=== PATIENT | male | born 1955 | race Caucasian/White ===

== ENCOUNTER 2018-08-22 13:28 | Inpatient (IN) | payer MEDICARE, SELFPAY ==
[2018-08-22] VITALS (11 sets, daily range): BP systolic 112–143; BP diastolic 67–98; PULSE 78–95; RESP 14–21; TEMP 36.4–36.8; O2SAT 95–100; BMI 26.5; BMI 22.8
--- NOTE | 2018-08-22 13:43 | ED.ABDPAIN ---
HPI - Abdominal Pain General Chief Complaint: Abdominal Pain Stated Complaint: ABDOMINAL PAIN/VOMITING Time Seen by Provider: 08/22/18 13:31 Source: patient Mode of arrival: ambulatory Limitations: no limitations History of Present Illness HPI narrative: Patient is a 62-year-old male here for evaluation of bilateral lower abdominal pain. He states that it started at about midnight last night. He states that it woke him up from sleep. Has had multiple episodes of vomiting since then. He reports that maybe the pain improves a little bit with the vomiting. Has no change when his urinated. Has not had a bowel movement since the onset of the symptoms. Has not tried anything for any of his symptoms. Related Data Home Medications Medication Instructions Recorded Confirmed ibuprofen 1 dose PO PRN PRN 08/22/18 08/22/18 losartan 12.5 mg PO DAILY 08/22/18 08/22/18 multivitamin 1 tab PO DAILY 08/22/18 08/22/18 Allergies Allergy/AdvReac Type Severity Reaction Status Date / Time No Known Drug Allergies Allergy Verified 08/22/18 13:35 Review of Systems Constitutional Denies fever(s) and Denies headache(s) ENT Ears, Nose, Mouth, and Throat: Denies headache(s) Cardiovascular Denies chest pain and Denies dyspnea Respiratory Denies dyspnea Gastrointestinal Gastrointestinal: Reports abdominal pain, Reports nausea and Reports vomiting Genitourinary Denies dysuria Musculoskeletal Denies myalgias and Denies arthralgias Integumentary/Breasts Denies lesions and Denies rash Neurologic Denies headache(s) PFSH Medical History Hypertension (Acute) Social History Smoking Status: Former smoker Social History Smoking Status: Former smoker Exam Initial Vital Signs Initial Vital Signs: Vital Signs Pulse Rate 90 08/22/18 13:35 Respiratory Rate 20 08/22/18 13:35 Blood Pressure 114/84 08/22/18 13:35 Pulse Oximetry 97 08/22/18 13:35 Const General: cooperative, well developed, well groomed and No acute distress Orientation: alert, awake and oriented x3 HENMT Head: normal to inspection and normocephalic Resp Effort & Inspection: normal respiratory effort Auscultation: clear to auscultation bilaterally Cardio Rate: regular rate Rhythm: regular rhythm Pulses: radial pulses present GI Inspection: non-distended Palpation: soft, No firm and tender (Bilateral lower abdominal tenderness with some guarding) Skin Lesions: no lesions Rashes: no rashes Neuro General: alert, awake and oriented x3 Cognition: normal cognition Speech: speech normal Gait: normal gait Extrem General: normal to inspection and capillary refill normal Psych Appearance: grossly normal and well kempt Course Orders Ordered: ED Orders 08/22/18 13:42 CT abdomen pelvis w con Stat 08/22/18 13:50 Complete Blood Count AUTO DIFF Stat Comprehensive Metabolic Panel Stat Lipase Stat 08/22/18 15:03 US abdomen complete Stat 08/22/18 19:05 Urine Culture Stat Urine Microscopic Stat Sodium Chloride (Normal Saline 0.9%) 1,000 mls @ 150 mls/hr IV CONT ALLEN Discontinued Medications Hydromorphone HCl (Dilaudid) 0.5 mg IV NOW ONE Stop: 08/22/18 14:58 Last Admin: 08/22/18 15:04 Dose: 0.5 mg Hydromorphone HCl (Dilaudid) 0.5 mg IV NOW ONE Stop: 08/22/18 15:54 Last Admin: 08/22/18 15:58 Dose: 0.5 mg Hydromorphone HCl (Dilaudid) 0.5 mg IV NOW ONE Stop: 08/22/18 16:33 Last Admin: 08/22/18 16:34 Dose: 0.5 mg Hydromorphone HCl (Dilaudid) 0.5 mg IV NOW ONE Stop: 08/22/18 17:20 Last Admin: 08/22/18 17:42 Dose: 0.5 mg Hydromorphone HCl (Dilaudid) 0.5 mg IV NOW ONE Stop: 08/22/18 19:41 Sodium Chloride (Normal Saline 0.9%) 1,000 mls @ 1,000 mls/hr IV BOLUS ONE Stop: 08/22/18 14:41 Last Infusion: 08/22/18 15:02 Dose: 0 mls/hr Admin: 08/22/18 14:01 Dose: 1,000 mls/hr Potassium Chloride 40 meq/ (Sodium Chloride) 520 mls @ 130 mls/hr IV NOW ONE Stop: 08/22/18 18:21 Last Admin: 08/22/18 15:03 Dose: 130 mls/hr Ondansetron HCl (Zofran) 4 mg IV NOW ONE Stop: 08/22/18 13:43 Last Admin: 08/22/18 14:01 Dose: 4 mg Vital Signs - 8 hr 08/22/18 13:35 08/22/18 13:40 08/22/18 14:05 Temperature 97.6 F Pulse Rate 90 78 Respiratory Rate 20 21 Blood Pressure 114/84 Blood Pressure [Right Arm] 112/86 Pulse Oximetry 97 100 08/22/18 15:00 08/22/18 16:03 08/22/18 16:40 Temperature Pulse Rate 80 95 H Respiratory Rate 15 18 Blood Pressure Blood Pressure [Right Arm] 141/81 H 118/87 122/85 Pulse Oximetry 99 100 08/22/18 18:00 08/22/18 19:00 Temperature Pulse Rate 91 H 94 H Respiratory Rate 20 17 Blood Pressure Blood Pressure [Right Arm] 118/67 120/88 Pulse Oximetry 95 100 MDM - Abdominal Pain Lab Data Attestation: I reviewed the patient's lab results. Result diagrams: 08/22/18 13:50 08/22/18 13:50 Lab Results 08/22/18 08/22/18 08/22/18 Range/Units 13:50 13:50 19:05 WBC 9.1 (4.5-11.0) X10^3/uL RBC 4.35 L (4.5-5.9) X10^6/uL Hgb 14.6 (13.5-17.5) g/dL Hct 42.6 (41-53) % MCV 97.8 (80-100) fL MCH 33.6 (26-34) PG MCHC 34.4 (30-36) % RDW 16.0 H (11.6-14.8) % Plt Count 480 H (150-400) X10^3/uL Neut % (Auto) 83.7 H (50-75) % Lymph % (Auto) 2.0 L (25-40) % [place] % (Auto) 14.1 H (3-14) % Eos % (Auto) 0.1 L (2-4) % Baso % (Auto) 0.1 (0-2) % Neut # (Auto) 7600 H (8539-5890) /uL Lymph # (Auto) 200 L (7902-0203) /uL [place] # (Auto) 1300 H (0-900) /uL Eos # (Auto) 0 (0-450) /uL Baso # (Auto) 0 (0-100) /uL Sodium 128 L (137-145) mmol/L Potassium 2.2 L* (3.4-5.1) mmol/L Chloride 80 L (98-107) mmol/L Carbon Dioxide 22 (22-32) mmol/L BUN 27 H (9-20) mg/dL Creatinine 1.10 (0.66-1.25) mg/dL Estimated GFR > 60.0 (>60) mL/min BUN/Creatinine Ratio 24.5 H (6-22) Glucose 144 H (80-110) mg/dL Calcium 9.0 (8.4-10.2) mg/dL Total Bilirubin 1.6 H (0.2-1.3) mg/dL AST 486 H (17-59) IU/L ALT 399 H (21-72) IU/L Alkaline Phosphatase 96 (38-126) U/L Total Protein 8.0 (6.3-8.2) g/dL Albumin 4.6 (3.5-5.0) g/dL Globulin 3.4 (1.7-4.1) g/dL Albumin/Globulin Ratio 1.4 (1.0-2.8) Lipase 96811 H (23-300) U/L Urine RBC 1-5/hpf (0-5/HPF) Urine WBC 5-10/hpf H (0-5/HPF) Urine Bacteria None seen (None) Ur Culture Indicated? Specimen cultured Point of care testing: Urine Dip Bedside Urine Glucose 100 mg/dl Bedside Urine Bilirubin + 1 Bedside Urine Ketone +/- 5 Bedside Urine Occult Blood + Bedside Urine pH 6.5 Bedside Urine Protein + 30 Bedside Urine Urobilinogen 1+ 2mg Bedside Urine Nitrite - Negative Bedside Urine Leukocytes +/- [address] scan - abdomen: Radiologist's impression: PROCEDURE: CT ABDOMEN PELVIS W CON INDICATIONS: bilateral lower abd pain TECHNIQUE: After the administration of oral and intravenous contrast, 5 mm thick sections acquired from the diaphragms to the symphysis. 5 mm thick coronal and sagittal reformats were performed. For radiation dose reduction, the following was used: automated exposure control, adjustment of mA and/or kV according to patient size. COMPARISON: None. FINDINGS: Image quality: Excellent. ABDOMEN: Lung bases: Lung bases are clear. Heart size is normal. Solid organs: Liver is normal in size and enhancement. Diffuse fatty infiltration of the liver. Gallbladder is within normal limits. Biliary system is non-dilated. Pancreas enhances normally. Inflammatory changes and free fluid noted adjacent to the pancreas compatible with acute pancreatitis. No pancreatic pseudocysts. Spleen is normal in size and enhancement. No adrenal nodules. Kidneys are normal in size and enhancement, without hydronephrosis. Left renal cyst is noted. Peritoneum and bowel: Small hiatal hernia. Mildly dilated loops of small bowel noted in left upper quadrant of the abdomen. Loops of small bowel are dilated up to 3.1 cm. There is circumferential wall thickening associated with the dilated loops of small bowel. Transition zone is in the proximal ileum. Stomach and colon loops are normal in caliber and wall thickness. Scattered diverticuli are noted in the colon without evidence of diverticulitis. No free air. Moderate amount of free fluid is scattered throughout the abdomen and pelvis. Nodes and vessels: No retroperitoneal or mesenteric adenopathy. Aorta and inferior vena cava are normal in caliber. Scattered atherosclerotic calcifications involving the abdominal and pelvic vasculature. Miscellaneous: No ventral hernias. PELVIS: Genitourinary: Bladder wall thickness is normal. Miscellaneous: No inguinal hernias or adenopathy. Bones: No suspicious bony lesions. No vertebral body compression fractures. Spine degenerative disc disease and facet arthropathy. IMPRESSION: 1. Solitary changes in fluid noted adjacent the pancreas compatible with pancreatitis. 2. Mild proximal small bowel dilatation and circumferential wall thickening concerning for partial obstruction or ileus related to nonspecific enteritis. 3. Severe hepatic steatosis. 4. Moderate amount of free fluid scattered throughout the abdomen and pelvis. 5. Colonic diverticulosis without evidence of diverticulitis. Findings discussed with Dr. Dean Christian on 08/22/2018 at 1501 hrs. Dictated by: Edwina Arreola MD, PhD on 08/22/2018 at 14:56 Approved by: Edwina Arreola MD, PhD on 08/22/2018 at 15:03 US - abdomen: Radiologist's impression: [address] [address] Ultrasound Report Signed Patient: ASHU HOGAN [facility]#: [id number] : 5Acct:[id number] Age/Sex: 62 / MDate of Service: 08/22/18 Loc: ED Accession Number: [id number] Procedure: US abdomen complete Ordering Provider: Dean Christian D.O. PROCEDURE: US ABDOMEN COMPLETE INDICATIONS: Eval for GB pathology TECHNIQUE: Real-time scanning was performed of the abdominal and retroperitoneal organs, with image documentation. COMPARISON: [facility], CT, CT ABDOMEN PELVIS W CON, 08/22/2018, 14:37. FINDINGS: Liver: Liver is normal in size and homogeneous in echotexture. Gallbladder: Gallbladder demonstrates sludge. Wall is within normal thickness. 9 x 4 x 5 mm nonmobile focus. Biliary ducts: Intrahepatic bile ducts are non-dilated. Extrahepatic bile duct caliber measures 4 mm. Normal is 6-7 mm or less in diameter, or 10 mm or less post-cholecystectomy. Pancreas: Obscured. Spleen: Spleen is normal in size and homogeneous in echotexture. Kidneys: Kidneys are normal in size and echotexture. Right kidney measures 11.1 cm long; left kidney measures 10.7 cm long. No hydronephrosis or nephrolithiasis. 3.7 cm focus of heterogencity within the lateral left kidney. Aorta: Visualized aorta is normal in caliber at less than 3 cm. Iliacs: Proximal common iliac arteries are normal in caliber at less than 2.5 cm. IVC: Intrahepatic inferior vena cava is patent. Miscellaneous: Trace free fluid adjacent to pancreas and left upper quadrant. IMPRESSION: 1. Adherent stone vs polyp in the gallbladder. 2. Complex left renal focus. Interval followup is recommended. 3. Left upper quadrant fluid of uncertain etiology. Pancreas is not well visualized and given the appearance on CT of 08/22/18, fluid is suspected to be related to pancreatitis. Dictated by: Elsa Murphy M.D. on 08/22/2018 at 16:09 MDM Narrative Medical decision making narrative: Patient with physical exam and CT and lab findings consistent with pancreatitis. Given his elevated LFTs there is a small concern for gallstone pancreatitis. I discussed the case with Dr. Harris with [facility] who states he would take the patient if GI would be willing to see the patient. I did discuss the case then with Dr. Vieyra with GI who states that this patient can be managed as medical pancreatitis. They states that the patient does need an MRCP however not an ERCP initially. She did not accept the patient. I then discussed the case then with Dr. Pena the hospitalist here at this hospital who requested that we attempt to transfer the patient. I then discussed the case with the GI provider at [facility] who again stated that there is nothing for GI to do. They stated the patient does needed MRCP but not any ERCP emergently. They stated that the patient could be managed by any hospitalist as a pancreatitis. I then discussed the case with Dr. Pena who requested that I talk with surgery here at this hospital. I discussed the case with Dr. Olivo which General surgery who stated that the patient potentially needs her gallbladder out at some point this is not an emergent condition as the ever is no signs of cholecystitis. I then discussed the case with KINGS Wang the night hospitalist who will admit the patient. I discussed the admission with the patient who expressed understanding and agreement. Discharge Plan Departure Patient Disposition: [facility] Clinical Impression: Hypokalemia, Pancreatitis, Hyponatremia Prescriptions: No Action multivitamin Tablet 1 tab PO DAILY RF: 0 losartan 25 mg Tablet 12.5 mg PO DAILY RF: 0 ibuprofen 200 mg Tablet 1 dose PO PRN PRN (Reason: pain) RF: 0
[2018-08-22 13:58] LABS: Add Manual Diff / Slide Review NO; Basophils Absolute Auto 0 /uL (0-100); Basophils Percent Auto 0.1 % (0-2); Eosinophils Absolute Auto 0 /uL (0-450); Eosinophils Percent Auto 0.1 % (2-4); Hematocrit 42.6 % (41-53); Hemoglobin 14.6 g/dL (13.5-17.5); Lymphocytes Absolute Auto 200 /uL (1100-4500); Mean Corpuscular HGB Conc 34.4 % (30-36); Mean Corpuscular Hemoglobin 33.6 PG (26-34); Mean Corpuscular Volume 97.8 fL (80-100); Monocytes Absolute Auto 1300 /uL (0-900); Monocytes Percent Auto 14.1 % (3-14); Neutrophils Absolute Auto 7600 /uL (1500-7000); Neutrophils Percent Auto 83.7 % (50-75); Platelet Count 480 X10^3/uL (150-400); Red Blood Cell Count 4.35 X10^6/uL (4.5-5.9); White Blood Cell Count 9.1 X10^3/uL (4.5-11.0)
[2018-08-22] MEDS: ONDANSETRON 4 MG/2 ML INJ IV (14:01)
[2018-08-22] MEDS: SODIUM CHLORIDE 0.9% 1,000 ML 1000 ML IV (14:01)
[2018-08-22 14:13] LABS: Alanine Aminotransferase 399 IU/L (21-72); Albumin 4.6 g/dL (3.5-5.0); Albumin Globulin Ratio 1.4 (1.0-2.8); Alkaline Phosphatase 96 U/L (38-126); Aspartate Aminotransferase 486 IU/L (17-59); BUN Creatinine Ratio 24.5 (6-22); Bilirubin Total 1.6 mg/dL (0.2-1.3); Blood Urea Nitrogen 27 mg/dL (9-20); Carbon Dioxide 22 mmol/L (22-32); Chloride 80 mmol/L (98-107); Estimated Glomerular Filt Rate > 60.0 mL/min (>60); Globulin 3.4 g/dL (1.7-4.1); Glucose 144 mg/dL (80-110); HEMOLYSIS < 15 (0-50); Sodium 128 mmol/L (137-145)
[2018-08-22 14:22] LABS: Potassium 2.2 mmol/L (3.4-5.1)
[2018-08-22 14:50] LABS: Lipase 29667 U/L (23-300)
[2018-08-22] MEDS: POTASSIUM CHLORIDE 40 MEQ in SODIUM CHLORIDE 0.9% 500 ML 130 ML IV (15:03)
--- NOTE | 2018-08-22 15:03 | DI.US.S_ITS ---
PROCEDURE: US ABDOMEN COMPLETE INDICATIONS: Eval for GB pathology TECHNIQUE: Real-time scanning was performed of the abdominal and retroperitoneal organs, with image documentation. COMPARISON: [facility], CT, CT ABDOMEN PELVIS W CON, 08/22/2018, 14:37. FINDINGS: Liver: Liver is normal in size and homogeneous in echotexture. Gallbladder: Gallbladder demonstrates sludge. Wall is within normal thickness. 9 x 4 x 5 mm nonmobile focus. Biliary ducts: Intrahepatic bile ducts are non-dilated. Extrahepatic bile duct caliber measures 4 mm. Normal is 6-7 mm or less in diameter, or 10 mm or less post-cholecystectomy. Pancreas: Obscured. Spleen: Spleen is normal in size and homogeneous in echotexture. Kidneys: Kidneys are normal in size and echotexture. Right kidney measures 11.1 cm long; left kidney measures 10.7 cm long. No hydronephrosis or nephrolithiasis. 3.7 cm focus of heterogencity within the lateral left kidney. Aorta: Visualized aorta is normal in caliber at less than 3 cm. Iliacs: Proximal common iliac arteries are normal in caliber at less than 2.5 cm. IVC: Intrahepatic inferior vena cava is patent. Miscellaneous: Trace free fluid adjacent to pancreas and left upper quadrant. IMPRESSION: 1. Adherent stone vs polyp in the gallbladder. 2. Complex left renal focus. Interval followup is recommended. 3. Left upper quadrant fluid of uncertain etiology. Pancreas is not well visualized and given the appearance on CT of 08/22/18, fluid is suspected to be related to pancreatitis. Dictated by: Elsa Murphy M.D. on 08/22/2018 at 16:09 Approved by: Elsa Murphy M.D. on 08/22/2018 at 16:24
[2018-08-22] MEDS: HYDROMORPHONE 1 MG INJ 0.5 MG IV ×5 (15:04→19:52)
[2018-08-22 19:27] LABS: Bacteria Urine None Seen
[2018-08-22] MEDS: SODIUM CHLORIDE 0.9% 1,000 ML 150 ML IV ×2 (19:30→21:20)
[2018-08-22 19:37] LABS: Culture Indicated Urine Specimen Cultured; RBC Urine 1-5/HPF (0-5/HPF); WBC Urine 5-10/HPF (0-5/HPF)
[2018-08-22] MEDS: HYDROMORPHONE 0.5 MG INJ IV (20:15)
--- NOTE | 2018-08-22 20:55 | PC.NURSE ---
Pt admitted to acute care from ER, transferred via stretcher. Alert/oriented. Reports pain 6/10, aching/sharp in abdomen. Pt is grimacing/moaning about every 5 seconds due to pain. Unable to focus/answer some health history/admission questions due to pain. IV flushed well. Oriented to room/call light. Informed pt to use call light for assist when getting out of bed, verbally confirmed understanding, bed alarm on.
--- NOTE | 2018-08-22 21:37 | P.HP_ITS ---
History of Present Illness Date Patient Seen: 08/22/18 Time Patient Seen: 21:50 Chief complaint: ABDOMINAL PAIN/VOMITING Narrative: The patient is a 62-year-old male with PMH of HTN, OS, small hiatal hernia, diverticulosis, left renal cyst. The patient is a poor historian. Patient presented to the ED on 08/22/2018 with complaints of epigastric pain. Symptoms initially noted shortly after mid-night and noted to be of sudden onset. There is no radiation to the back, chest, or flanks. Pain is characterized as cramping and constant. Rated 6-7/10. Abdominal discomfort awakened patient from sleep. Associated symptoms include nausea and vomiting (estimates 16 episodes of bilious emesis). No fever or chills. No diaphoresis. Diminished appetite. No attempts at eating or drinking in lieu of severe abdominal discomfort. No specific exacerbating or remitting factors noted. Denies history of cholelithiasis /cholecystitis, hypertriglyceridemia, external abdominal trauma, or autoimmune condition. Denies prior history of heavy alcohol use; however, does have lifelong EtOH use, currently drinks 2 drinks thrice weekly. Did drink slightly more in his younger years, but denies paranoia excessive use or alcoholism. RF: Advanced age, alcohol use (lifelong). [place] [address]. ALT 399, AST 46, T. Bili 1.6. No signs symptoms of SIRS or sepsis. CT A/P w/ contrast... - Inflammatory changes and free fluid adjacent to the pancreas compatible w/ acute pancreatitis. No pancreatic pseudocyst. - Mildly dilated loops of small bowel noted in LUQ of the abdomen. Loops of small bowel are dilated up to 3.1 cm. There is circumferential wall thickening associated with the dilated loops of small bowel. Transition zone is in the proximal ileum. Concerning for partial obstruction or ileus related to non-specific enteritis. - diverticuli in the colon without evidence of diverticulitis - no free air. Moderate amount of free fluid is scattered throughout the abdomen and pelvis. - severe hepatic steatosis Patient History Medical History Foot fracture, right (Acute) Hypertension (Acute) Surgical History History of bilateral knee replacement (Acute) Social History household members: spouse and family Smoking Status: Former smoker alcohol intake: current Family & Social History Social History: household members Spouse,family. Lives in seen the a ago. Lizet maciel's mother lives in local area, no visiting her since May / as she had surgery. Prior Living Arrangements House Safety & Behavioral: Feels Safe in Current Yes Environment Been Physically Hurt or No Threatened By a Person Suicidal Ideation Description None Tobacco & Substance use: Smoking Status Former smoker alcohol intake Current alcohol intake frequency Reports drinking 2 drinks, 2 to 3 times a week. Lifelong phenomena. Denies heavy history of alcohol use. Substance Use Type Does not use Meds Home Medications Medication Instructions Recorded Confirmed Type ibuprofen 1 dose PO PRN PRN 08/22/18 08/22/18 History losartan 12.5 mg PO DAILY 08/22/18 08/22/18 History multivitamin 1 tab PO DAILY 08/22/18 08/22/18 History Allergies Allergy/AdvReac Type Severity Reaction Status Date / Time Sulfa (Sulfonamide Allergy Severe Swelling Verified 08/22/18 20:49 Antibiotics) of Lip/Tongue/Throat Review of Systems Review of Systems All systems reviewed & are unremarkable except as noted in HPI and below Exam Vital Signs (past 8 hours): - 08/22/18 13:40 08/22/18 14:05 08/22/18 15:00 Temperature 97.6 F Pulse Rate 78 80 Respiratory Rate 21 15 Blood Pressure [Right Arm] 112/86 141/81 H Pulse Oximetry 100 99 08/22/18 16:03 08/22/18 16:40 08/22/18 18:00 Temperature Pulse Rate 95 H 91 H Respiratory Rate 18 20 Blood Pressure [Right Arm] 118/87 122/85 118/67 Pulse Oximetry 100 95 08/22/18 19:00 08/22/18 19:30 08/22/18 20:00 Temperature Pulse Rate 94 H 86 90 Respiratory Rate 17 14 16 Blood Pressure [Right Arm] 120/88 120/75 128/98 H Pulse Oximetry 100 97 97 Oxygen Delivery Method Room Air Narrative Exam Narrative: Constitutional: In overt distress on initial presentation. Complaints cramping epigastric pain, 7/10. Restless. Patient appears older than his stated age. Lying on right side with knees flexed. Neurologic: Alert and awake. Oriented to person, place, and reason for hospital admission. Memory problems noted, poor short and long-term memory recall. Head: NC, AT Eyes: PERRL, EOMI, no scleral icterus Ears: external ears normal, no otorrhea Nose: external nose normal, no rhinorrhea or epistaxis Throat: DRY MM, oropharynx w/o exudate Neck: no masses, lymphadenopathy, or JVD Chest / Respiratory: equal chest rise, mildly tachypneic - RR 24, no dyspnea or accessory muscle use Diminished breath sounds bilaterally Heart / CV: S1S2, no murmur Abdomen / GI: soft, epigastric tenderness and guarding, no LUQ or RUQ tenderness, ND, hypoactive BS, no organomegaly. Frequent, audible belching. No flank or periumbilical ecchymosis. : no suprapubic tenderness, no CVA Peripheral / Vascular: warm to touch, DP and PT pulses palpable, no edema Musc: full ROM of upper and lower extremities, adequate muscle tone and bulk Skin: no flank or periumbilical ecchymosis, no diaphoresis Objective Labs Result Diagrams: 08/22/18 13:50 08/22/18 23:11 Labs: Laboratory Results - last 24 hr 08/22/18 08/22/18 08/22/18 13:50 13:50 19:05 WBC 9.1 RBC 4.35 L Hgb 14.6 Hct 42.6 MCV 97.8 MCH 33.6 MCHC 34.4 RDW 16.0 H Plt Count 480 H Neut % (Auto) 83.7 H Lymph % (Auto) 2.0 L [place] % (Auto) 14.1 H Eos % (Auto) 0.1 L Baso % (Auto) 0.1 Neut # (Auto) 7600 H Lymph # (Auto) 200 L [place] # (Auto) 1300 H Eos # (Auto) 0 Baso # (Auto) 0 Sodium 128 L Potassium 2.2 L* Chloride 80 L Carbon Dioxide 22 BUN 27 H Creatinine 1.10 Estimated GFR > 60.0 BUN/Creatinine Ratio 24.5 H Glucose 144 H Calcium 9.0 Total Bilirubin 1.6 H AST 486 H ALT 399 H Alkaline Phosphatase 96 Total Protein 8.0 Albumin 4.6 Globulin 3.4 Albumin/Globulin Ratio 1.4 Lipase 98629 H Urine RBC 1-5/hpf Urine WBC 5-10/hpf H Urine Bacteria None seen Ur Culture Indicated? Specimen cultured Assessment & Plan Assessment & Plan narrative: Acute pancreatitis, present on admission Epigastric discomfort, lipase 67372. No SIRS or indications for sepsis. No associated respiratory, cardiovascular, or renal failure. CT A/P: gallbladder WNL; biliary system non-dilated; pancreas enhances normally; inflammatory changes and free fluid adjacent to the pancreas compatible w/ acute pancreatitis; no pancreatic pseudocyst. U/S of Abdomen revealed adherent stone vs polyp in the gallbladder. Complex left renal focus. LUQ fluid of uncertain etiology. Pancreas is not well visualized, taking into account CT findings, is suspected to be r/t pancreatitis. Acute pancreatitis secondary to choledocholithiasis; h/o of moderate alcohol use. Abnormal labs: Lipase 92253, ALT 399, AST 46, T. Bili 1.6. No signs symptoms of SIRS or sepsis. - aggressive fluid resuscitation w/ NS at 150-200 ml/hr - correction of electrolytes and metabolic abnormalities, hypokalemia and hypomagnesemia, will replete accordingly - Strict I/O monitoring - pain control with IV Dilaudid 1 mg q.3 hours - NPO for bowel rest, nutritional support - Anti-emetics - a.m. labs: LFTs, lipid profile, BMP, Mg, lipase (BMP, Mg, lipase - trending, order placed until 08/25) - discontinue toxic medications - No s/s of sepsis or infection, will monitor close, as will need to initiate empiric therapy - Abd U/S findings, adherent stone vs polyp in gallbladder, consult surgery for MRCP (Dr. Olivo) - monitor for complications abdominal compartment syndrome, bowel infarction and or perforation, peripancreatic vascular complications, etc. Ileus vs SBO (transition point proximum ilium), acute, complication of acute pancreatitis Hypoactive bowel sounds. No abdominal distention. No emesis. - may need to consider NG tube, will monitor for now - maintain patient NPO Hypovolemia, acute, present on admission 2/2 GI losses and hypermetabolic state - aggressive IV fluid resuscitation Hypokalemia, acute, present on admission, asymptomatic Treated w/ 40 mEq IV KCl in ED - Tele monitoring - Repeat BMP, Mg at 2300 - Replete e-lyte abnormalities accordingly Acute pain In the setting of acute pancreatitis. Allergic to morphine. Tolerated Dilaudid in ED. Patient does not have a history of opioid use. Does not exhibit drug-seeking behaviors. - Dilaudid 1 mg every 3 hours prn pain, plan to transition to oral formulation and 24-48 hours Essential hypertension, chronic condition, controlled with once daily ARBhawa normotensive - Monitor / Trend BP - Hold ARB... re: at risk for LAURO and sepsis, Full code.
[2018-08-22] MEDS: HYDROMORPHONE 2 MG INJ 1 MG IV (22:04)
[2018-08-22 23:34] LABS: BUN Creatinine Ratio 31.1 (6-22); Blood Urea Nitrogen 28 mg/dL (9-20); Calcium 7.3 mg/dL (8.4-10.2); Carbon Dioxide 27 mmol/L (22-32); Chloride 92 mmol/L (98-107); Estimated Glomerular Filt Rate > 60.0 mL/min (>60); Glucose 119 mg/dL (80-110); HEMOLYSIS < 15 (0-50); Magnesium 1.6 mg/dL (1.6-2.3); Sodium 129 mmol/L (137-145)
[2018-08-22 23:36] LABS: Potassium 2.6 mmol/L (3.4-5.1)
[2018-08-22 23:47] LABS: C-Reactive Protein Quant 6.1 mg/dL (<1.0)
[2018-08-23] VITALS (7 sets, daily range): BP systolic 94–127; BP diastolic 56–93; PULSE 82–94; RESP 16–22; TEMP 36.2–36.8; O2SAT 92–96
--- NOTE | 2018-08-23 | DI.MRI.S_ITS ---
PROCEDURE: MR ABDOMEN WO CON INDICATIONS: pancreatitis, ? cholecodolithiasis TECHNIQUE: Coronal HASTE through the abdomen, axial 2-D FLASH in- and [id number], and breath-hold T2 FSE with fat saturation through the biliary system and pancreas. Oblique coronal and axial thin-slice HASTE, radial thick-slab HASTE centered on the extrahepatic bile ducts. Intravenous secretin: Not requested. COMPARISON: [facility], US, US ABDOMEN COMPLETE, 08/22/2018, 15:13. [facility], CT, CT ABDOMEN PELVIS W CON, 08/22/2018, 14:37. FINDINGS: Image quality: Excellent. Pancreas and biliary system: Intra- and extra-hepatic biliary ducts are non dilated. Common hepatic duct and common bile duct are normal in caliber, demonstrating no filling defects to suggest choledocholithiasis. Pancreas is edematous. There is peripancreatic soft tissue stranding and fluid collection consistent with acute pancreatitis. Pancreatic duct is normal in caliber. No immediate developmental anomalies. Gallbladder wall thickness is normal. No stone or polyp is identified. Other solid organs: Liver and spleen are normal in size. There is a small amount of ascites around the liver and spleen. No adrenal nodules. Both kidneys are normal in size, without hydronephrosis. A 2.8 cm exophytic cyst is noted in the inferior pole of the left kidney. Nodes and vessels: No retroperitoneal or mesenteric adenopathy by size criteria. Aorta and inferior vena cava are normal in size. Bowel and peritoneum: Unenhanced bowel loops are normal in caliber. There is a small amount of free fluid in the lesser sac and paracolic gutters. Lung bases: Bibasilar consolidations or atelectasis. Heart size is normal. There is a 2.4 cm cystic structure in the posterior mediastinum right of the distal esophagus/gastroesophageal junction, most likely an enlarged lymph node. Bones and soft tissues: No ventral hernias. Bone marrow is of normal overall signal. IMPRESSION: 1. Acute pancreatitis. 2. No gallstones identified on MRI. No choledocholithiasis. 3. Normal caliber of intrahepatic and extrahepatic biliary ducts , as well as the pancreatic duct. 4. A small amount of ascites. 5. Bibasilar consolidations or atelectasis. 6. 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 Dictated by: Marilu Meek M.D. on 08/23/2018 at 10:20 Approved by: Marilu Meek M.D. on 08/23/2018 at 10:45
[2018-08-23] MEDS: HYDROMORPHONE 1 MG INJ IV ×6 (01:14→20:58)
[2018-08-23] MEDS: SODIUM CHLORIDE 0.9% 1,000 ML 150 ML IV ×2 (04:09→16:46)
[2018-08-23 05:31] LABS: Cholesterol 162 mg/dL (140-199); HDL Cholesterol 48 mg/dL (40-60); LDL Cholesterol Calculated 101 mg/dL (<100); Triglycerides 63 mg/dL (35-150); VLDL Cholesterol Calculated 13 mg/dL (2-30)
[2018-08-23] MEDS: POTASSIUM CHLORIDE 20 MEQ/15 ML UDC 40 MEQ PO (06:10)
[2018-08-23] MEDS: POTASSIUM CHLORIDE 40 MEQ in SODIUM CHLORIDE 0.9% 500 ML 130 ML IV ×2 (06:11→22:23)
[2018-08-23] MEDS: MAGNESIUM SULFATE 2 GM/50 ML PIGGYBACK IV ×2 (06:15→13:17)
--- NOTE | 2018-08-23 06:58 | PC.NURSE ---
2nd line started & Mag rider infusing & K-rider also infusing in Lt. forearm IVP. Denies any nausea all shift, but C/O abdominal pain & medicated with 1 mg. of Dilaudid x 2 doses this shift. Pt. also had an order for liquid Potassium & he took it with apple juice. Will cont. with POc & monitor.
[2018-08-23 07:24] LABS: Alanine Aminotransferase 245 IU/L (21-72); Albumin 2.9 g/dL (3.5-5.0); Albumin Globulin Ratio 1.1 (1.0-2.8); Alkaline Phosphatase 58 U/L (38-126); Aspartate Aminotransferase 220 IU/L (17-59); Bilirubin Total 1.8 mg/dL (0.2-1.3); Bilirubin Unconjugated 0.7 mg/dL (0.0-1.1); Globulin 2.6 g/dL (1.7-4.1); HEMOLYSIS < 15 (0-50); Total Protein 5.5 g/dL (6.3-8.2)
[2018-08-23 07:25] LABS: BUN Creatinine Ratio 33.8 (6-22); Blood Urea Nitrogen 27 mg/dL (9-20); Calcium 7.2 mg/dL (8.4-10.2); Carbon Dioxide 28 mmol/L (22-32); Chloride 93 mmol/L (98-107); Estimated Glomerular Filt Rate > 60.0 mL/min (>60); Glucose 105 mg/dL (80-110); HEMOLYSIS < 15 (0-50); Magnesium 1.6 mg/dL (1.6-2.3); Sodium 130 mmol/L (137-145)
[2018-08-23 07:43] LABS: Potassium 2.5 mmol/L (3.4-5.1)
[2018-08-23 08:11] LABS: Lipase 10418 U/L (23-300)
[2018-08-23] MEDS: HEPARIN 5,000 UNIT/ML VIAL 5000 UNIT SUBCUT ×2 (09:14→20:58)
--- NOTE | 2018-08-23 09:46 | PC.NURSE ---
Pt c/of severe pain in abdomen, no nausea. Moaning with pain. Given 1 mg of dilaudid then went for MRI. O2 sats = 95% on RA. Pt reports he drinks several shots of vodka/orange and beer on most days. Denies any signs of withdrawal at this time - no tremor.
--- NOTE | 2018-08-23 14:17 | PM.CN ---
History of Present Illness Date Patient Seen: 08/23/18 Time Patient Seen: 14:18 Chief complaint: ABDOMINAL PAIN/VOMITING Reason for consult: Pancreatitis Requesting provider: Trevin Wang Narrative: Mr. poe is a 62-year-old gentleman who presented to the emergency room yesterday evening complaining of abdominal pain. He said the pain was acute and started shortly after midnight. It had been associated with nausea and vomiting. He cannot identify any sick contacts. He reported at that time that he felt vomiting made it a little better. He was seen and evaluated by the emergency room staff and found to have pancreatitis with a lipase just under 30,000. At that time, he had an ultrasound which showed the possibility of sludge or a polyp in the gallbladder. It was notable that his bilirubin was essentially normal as was his alk-phos. The ultrasound of his abdomen showed a normal caliber duct with no evidence of inflammation. It also showed a normal gallbladder wall thickness without any evidence of infection or obstruction. Overnight, Ricardo has received hydration and his lipase has decreased to about 10,000. He still has significant abdominal pain but he says he is a little more comfortable than he was at admission. He is not vomiting as he was at admission. [facility] Medical History Foot fracture, right (Acute) Hypertension (Acute) Surgical History History of bilateral knee replacement (Acute) Social History household members: spouse and family Smoking Status: Former smoker alcohol intake: current Social History household members: spouse and family Smoking Status: Former smoker alcohol intake: current Meds Home Medications Medication Instructions Recorded Confirmed Type ibuprofen 1 dose PO PRN PRN 08/22/18 08/22/18 History losartan 12.5 mg PO DAILY 08/22/18 08/22/18 History multivitamin 1 tab PO DAILY 08/22/18 08/22/18 History Allergies Allergy/AdvReac Type Severity Reaction Status Date / Time Sulfa (Sulfonamide Allergy Severe Swelling Verified 08/22/18 20:49 Antibiotics) of Lip/Tongue/Throat Review of Systems Review of Systems Drain denies any unexplained weight loss. He reports that he does drink both beer and vodka essentially daily. He denies any prior yellowing of the eyes or the skin. He denies any prior episodes of pancreatitis. Exam Vital Signs (past 8 hours): - 08/23/18 10:59 08/23/18 12:20 Temperature 98.2 F 97.6 F Pulse Rate 84 82 Respiratory Rate 20 18 Blood Pressure 94/68 123/64 Pulse Oximetry 92 95 Oxygen Delivery Method Room Air Narrative Exam Narrative: Thin-appearing gentleman in mild distress HEENT: Normocephalic and atraumatic. Pupils equal round reactive to light accommodation with anicteric sclera Lungs: Essentially clear bilaterally Heart: Regular rate and rhythm Abdomen: Soft, quite tender to palpation in the mid epigastrium and bilateral upper quadrants. Some tenderness in bilateral lower quadrants. Definite rebound and voluntary guarding. Hypoactive bowel sounds. Extremities: Warm and well perfused and without edema Objective Labs Result Diagrams: 08/22/18 13:50 08/23/18 05:08 Labs: Laboratory Results - last 24 hr 08/22/18 08/22/18 08/22/18 13:50 19:05 23:11 Sodium 129 L Potassium 2.2 L* 2.6 L* Chloride 92 L Carbon Dioxide 27 BUN 28 H Creatinine 0.90 Estimated GFR > 60.0 BUN/Creatinine Ratio 31.1 H Glucose 119 H Calcium 7.3 L Magnesium 1.6 Total Bilirubin Conjugated Bilirubin Unconjugated Bilirubin AST ALT Alkaline Phosphatase C-Reactive Protein Total Protein Albumin Globulin Albumin/Globulin Ratio Triglycerides Cholesterol LDL Cholesterol, Calc VLDL Cholesterol HDL Cholesterol Lipase 94155 H Urine RBC 1-5/hpf Urine WBC 5-10/hpf H Urine Bacteria None seen Ur Culture Indicated? Specimen cultured 08/22/18 08/23/18 08/23/18 23:11 05:08 05:08 Sodium Potassium Chloride Carbon Dioxide BUN Creatinine Estimated GFR BUN/Creatinine Ratio Glucose Calcium Magnesium Total Bilirubin 1.8 H Conjugated Bilirubin 0.0 Unconjugated Bilirubin 0.7 AST 220 H ALT 245 H Alkaline Phosphatase 58 C-Reactive Protein 6.1 H Total Protein 5.5 L Albumin 2.9 L Globulin 2.6 Albumin/Globulin Ratio 1.1 Triglycerides 63 Cholesterol 162 LDL Cholesterol, Calc 101 H VLDL Cholesterol 13 HDL Cholesterol 48 Lipase 42739 H D Urine RBC Urine WBC Urine Bacteria Ur Culture Indicated? 08/23/18 05:08 Sodium 130 L Potassium 2.5 L* Chloride 93 L Carbon Dioxide 28 BUN 27 H Creatinine 0.80 Estimated GFR > 60.0 BUN/Creatinine Ratio 33.8 H Glucose 105 Calcium 7.2 L Magnesium 1.6 Total Bilirubin Conjugated Bilirubin Unconjugated Bilirubin AST ALT Alkaline Phosphatase C-Reactive Protein Total Protein Albumin Globulin Albumin/Globulin Ratio Triglycerides Cholesterol LDL Cholesterol, Calc VLDL Cholesterol HDL Cholesterol Lipase Urine RBC Urine WBC Urine Bacteria Ur Culture Indicated? [address] [address] Magnetic Resonance Report Signed Patient: ASHU POE MR#: [id number] : 1955 Acct:[id number] Age/Sex: 62 / M Date of Service: 08/23/18 Loc: 229-1 Accession Number: [id number] Procedure: MR abdomen wo con Ordering Provider: Trevin Wang PROCEDURE: MR ABDOMEN WO CON INDICATIONS: pancreatitis, ? cholecodolithiasis TECHNIQUE: Coronal HASTE through the abdomen, axial 2-D FLASH in- and [id number], and breath-hold T2 FSE with fat saturation through the biliary system and pancreas. Oblique coronal and axial thin-slice HASTE, radial thick-slab HASTE centered on the extrahepatic bile ducts. Intravenous secretin: Not requested. COMPARISON: [facility], US, US ABDOMEN COMPLETE, 08/22/2018, 15:13. [facility], CT, CT ABDOMEN PELVIS W CON, 08/22/2018, 14:37. FINDINGS: Image quality: Excellent. Pancreas and biliary system: Intra- and extra-hepatic biliary ducts are non dilated. Common hepatic duct and common bile duct are normal in caliber, demonstrating no filling defects to suggest choledocholithiasis. Pancreas is edematous. There is peripancreatic soft tissue stranding and fluid collection consistent with acute pancreatitis. Pancreatic duct is normal in caliber. No immediate developmental anomalies. Gallbladder wall thickness is normal. No stone or polyp is identified. Other solid organs: Liver and spleen are normal in size. There is a small amount of ascites around the liver and spleen. No adrenal nodules. Both kidneys are normal in size, without hydronephrosis. A 2.8 cm exophytic cyst is noted in the inferior pole of the left kidney. Nodes and vessels: No retroperitoneal or mesenteric adenopathy by size criteria. Aorta and inferior vena cava are normal in size. Bowel and peritoneum: Unenhanced bowel loops are normal in caliber. There is a small amount of free fluid in the lesser sac and paracolic gutters. Lung bases: Bibasilar consolidations or atelectasis. Heart size is normal. There is a 2.4 cm cystic structure in the posterior mediastinum right of the distal esophagus/gastroesophageal junction, most likely an enlarged lymph node. Bones and soft tissues: No ventral hernias. Bone marrow is of normal overall signal. IMPRESSION: 1. Acute pancreatitis. 2. No gallstones identified on MRI. No choledocholithiasis. 3. Normal caliber of intrahepatic and extrahepatic biliary ducts , as well as the pancreatic duct. 4. A small amount of ascites. 5. Bibasilar consolidations or atelectasis. 6. 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 Dictated by: Marilu Meek M.D. on 08/23/2018 at 10:20 Approved by: Marilu Meek M.D. on 08/23/2018 at 10:45 Assessment & Plan Assessment & Plan narrative: No evidence of biliary pancreatitis in this pleasant gentleman. The gallbladder is normal and there is no evidence of either stones or polyps on the recent MRI. This is most likely alcoholic pancreatitis. I agree with current treatment. There is no indication for surgical intervention. We will be available if needed.
--- NOTE | 2018-08-23 14:21 | P.CONS_ITS ---
History of Present Illness Date Patient Seen: 08/23/18 Time Patient Seen: 14:18 Chief complaint: ABDOMINAL PAIN/VOMITING Reason for consult: Pancreatitis Requesting provider: Trevin Wang Narrative: Mr. poe is a 62-year-old gentleman who presented to the emergency room yesterday evening complaining of abdominal pain. He said the pain was acute and started shortly after midnight. It had been associated with nausea and vomiting. He cannot identify any sick contacts. He reported at that time that he felt vomiting made it a little better. He was seen and evaluated by the emergency room staff and found to have pancreatitis with a lipase just under 30,000. At that time, he had an ultrasound which showed the possibility of sludge or a polyp in the gallbladder. It was notable that his bilirubin was essentially normal as was his alk-phos. The ultrasound of his abdomen showed a normal caliber duct with no evidence of inflammation. It also showed a normal gallbladder wall thickness without any evidence of infection or obstruction. Overnight, Ricardo has received hydration and his lipase has decreased to about 10,000. He still has significant abdominal pain but he says he is a little more comfortable than he was at admission. He is not vomiting as he was at admission. [facility] Medical History Foot fracture, right (Acute) Hypertension (Acute) Surgical History History of bilateral knee replacement (Acute) Social History household members: spouse and family Smoking Status: Former smoker alcohol intake: current Social History household members: spouse and family Smoking Status: Former smoker alcohol intake: current Meds Home Medications Medication Instructions Recorded Confirmed Type ibuprofen 1 dose PO PRN PRN 08/22/18 08/22/18 History losartan 12.5 mg PO DAILY 08/22/18 08/22/18 History multivitamin 1 tab PO DAILY 08/22/18 08/22/18 History Allergies Allergy/AdvReac Type Severity Reaction Status Date / Time Sulfa (Sulfonamide Allergy Severe Swelling Verified 08/22/18 20:49 Antibiotics) of Lip/Tongue/Throat Review of Systems Review of Systems Drain denies any unexplained weight loss. He reports that he does drink both beer and vodka essentially daily. He denies any prior yellowing of the eyes or the skin. He denies any prior episodes of pancreatitis. Exam Vital Signs (past 8 hours): - 08/23/18 10:59 08/23/18 12:20 Temperature 98.2 F 97.6 F Pulse Rate 84 82 Respiratory Rate 20 18 Blood Pressure 94/68 123/64 Pulse Oximetry 92 95 Oxygen Delivery Method Room Air Narrative Exam Narrative: Thin-appearing gentleman in mild distress HEENT: Normocephalic and atraumatic. Pupils equal round reactive to light accommodation with anicteric sclera Lungs: Essentially clear bilaterally Heart: Regular rate and rhythm Abdomen: Soft, quite tender to palpation in the mid epigastrium and bilateral upper quadrants. Some tenderness in bilateral lower quadrants. Definite rebo und and voluntary guarding. Hypoactive bowel sounds. Extremities: Warm and well perfused and without edema Objective Labs Result Diagrams: 08/22/18 13:50 08/23/18 05:08 Labs: Laboratory Results - last 24 hr 08/22/18 08/22/18 08/22/18 13:50 19:05 23:11 Sodium 129 L Potassium 2.2 L* 2.6 L* Chloride 92 L Carbon Dioxide 27 BUN 28 H Creatinine 0.90 Estimated GFR > 60.0 BUN/Creatinine Ratio 31.1 H Glucose 119 H Calcium 7.3 L Magnesium 1.6 Total Bilirubin Conjugated Bilirubin Unconjugated Bilirubin AST ALT Alkaline Phosphatase C-Reactive Protein Total Protein Albumin Globulin Albumin/Globulin Ratio Triglycerides Cholesterol LDL Cholesterol, Calc VLDL Cholesterol HDL Cholesterol Lipase 48627 H Urine RBC 1-5/hpf Urine WBC 5-10/hpf H Urine Bacteria None seen Ur Culture Indicated? Specimen cultured 08/22/18 08/23/18 08/23/18 23:11 05:08 05:08 Sodium Potassium Chloride Carbon Dioxide BUN Creatinine Estimated GFR BUN/Creatinine Ratio Glucose Calcium Magnesium Total Bilirubin 1.8 H Conjugated Bilirubin 0.0 Unconjugated Bilirubin 0.7 AST 220 H ALT 245 H Alkaline Phosphatase 58 C-Reactive Protein 6.1 H Total Protein 5.5 L Albumin 2.9 L Globulin 2.6 Albumin/Globulin Ratio 1.1 Triglycerides 63 Cholesterol 162 LDL Cholesterol, Calc 101 H VLDL Cholesterol 13 HDL Cholesterol 48 Lipase 77317 H D Urine RBC Urine WBC Urine Bacteria Ur Culture Indicated? 08/23/18 05:08 Sodium 130 L Potassium 2.5 L* Chloride 93 L Carbon Dioxide 28 BUN 27 H Creatinine 0.80 Estimated GFR > 60.0 BUN/Creatinine Ratio 33.8 H Glucose 105 Calcium 7.2 L Magnesium 1.6 Total Bilirubin Conjugated Bilirubin Unconjugated Bilirubin AST ALT Alkaline Phosphatase C-Reactive Protein Total Protein Albumin Globulin Albumin/Globulin Ratio Triglycerides Cholesterol LDL Cholesterol, Calc VLDL Cholesterol HDL Cholesterol Lipase Urine RBC Urine WBC Urine Bacteria Ur Culture Indicated? [address] [address] Magnetic Resonance Report Signed Patient: ASHU POE MR#: [id number] : 1955 Acct:[id number] Age/Sex: 62 / M Date of Service: 08/23/18 Loc: 229-1 Accession Number: [id number] Procedure: MR abdomen wo con Ordering Provider: Trevin Wang PROCEDURE: MR ABDOMEN WO CON INDICATIONS: pancreatitis, ? cholecodolithiasis TECHNIQUE: Coronal HASTE through the abdomen, axial 2-D FLASH in- and [id number], and breath-hold T2 FSE with fat saturation through the biliary system and pancreas. Oblique coronal and axial thin-slice HASTE, radial thick-slab HASTE centered on the extrahepatic bile ducts. Intravenous secretin: Not requested. COMPARISON: [facility], US, US ABDOMEN COMPLETE, 08/22/2018, 15:13. [facility], CT, CT ABDOMEN PELVIS W CON, 08/22/2018, 14:37. FINDINGS: Image quality: Excellent. Pancreas and biliary system: Intra- and extra-hepatic biliary ducts are non dilated. Common hepatic duct and common bile duct are normal in caliber, demonstrating no filling defects to suggest choledocholithiasis. Pancreas is edematous. There is peripancreatic soft tissue stranding and fluid collection consistent with acute pancreatitis. Pancreatic duct is normal in caliber. No immediate developmental anomalies. Gallbladder wall thickness is normal. No stone or polyp is identified. Other solid organs: Liver and spleen are normal in size. There is a small amount of ascites around the liver and spleen. No adrenal nodules. Both kidneys are normal in size, without hydronephrosis. A 2.8 cm exophytic cyst is noted in the inferior pole of the left kidney. Nodes and vessels: No retroperitoneal or mesenteric adenopathy by size criteria. Aorta and inferior vena cava are normal in size. Bowel and peritoneum: Unenhanced bowel loops are normal in caliber. There is a small amount of free fluid in the lesser sac and paracolic gutters. Lung bases: Bibasilar consolidations or atelectasis. Heart size is normal. There is a 2.4 cm cystic structure in the posterior mediastinum right of the distal esophagus/gastroesophageal junction, most likely an enlarged lymph node. Bones and soft tissues: No ventral hernias. Bone marrow is of normal overall signal. IMPRESSION: 1. Acute pancreatitis. 2. No gallstones identified on MRI. No choledocholithiasis. 3. Normal caliber of intrahepatic and extrahepatic biliary ducts , as well as the pancreatic duct. 4. A small amount of ascites. 5. Bibasilar consolidations or atelectasis. 6. 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 Dictated by: Marilu Meek M.D. on 08/23/2018 at 10:20 Approved by: Marilu Meek M.D. on 08/23/2018 at 10:45 Assessment & Plan Assessment & Plan narrative: No evidence of biliary pancreatitis in this pleasant gentleman. The gallbladder is normal and there is no evidence of either stones or polyps on the recent MRI. This is most likely alcoholic pancreatitis. I agree with current treatment. There is no indication for surgical intervention. We will be available if needed.
[2018-08-23 14:56] LABS: Add Manual Diff / Slide Review NO; Basophils Absolute Auto 0 /uL (0-100); Basophils Percent Auto 0.2 % (0-2); Eosinophils Absolute Auto 0 /uL (0-450); Hematocrit 36.7 % (41-53); Hemoglobin 12.5 g/dL (13.5-17.5); Lymphocytes Absolute Auto 400 /uL (1100-4500); Lymphocytes Percent Auto 5.2 % (25-40); Mean Corpuscular Hemoglobin 33.7 PG (26-34); Mean Corpuscular Volume 98.9 fL (80-100); Monocytes Absolute Auto 500 /uL (0-900); Monocytes Percent Auto 6.1 % (3-14); Neutrophils Absolute Auto 7000 /uL (1500-7000); Neutrophils Percent Auto 88.5 % (50-75); Platelet Count 320 X10^3/uL (150-400); Red Blood Cell Count 3.71 X10^6/uL (4.5-5.9); Red Cell Distribution Width 15.9 % (11.6-14.8); White Blood Cell Count 7.9 X10^3/uL (4.5-11.0)
--- NOTE | 2018-08-23 15:09 | P.PN_ITS ---
Subjective Date Patient Seen: 08/23/18 Interval history: Deepak Quintanilla is a 62-year-old male with a past medical history significant for hypertension, ITZEL, small hiatal hernia, diverticulosis, left renal cyst who presented to the ED on 08/22/2018 with complaints of epigastric pain with associated nausea vomiting. The patient is resting in bed and appears uncomfortable. He reports his epigastric abdominal pain is a +5/10. He also endorses intermittent nausea. He recently had water and Jell-O and for back off and for now will back off to clear liquids minimally today. He denies headache, shortness of breath, chest pain, vomiting, fever, chills, dysuria, diarrhea or constipation. He is voiding and eliminating without difficulty. He is up ambulating minimally due to pain without assistance. Exam Vital Signs (past 8 hours): - 08/23/18 10:59 08/23/18 12:20 Temperature 98.2 F 97.6 F Pulse Rate 84 82 Respiratory Rate 20 18 Blood Pressure 94/68 123/64 Pulse Oximetry 92 95 Oxygen Delivery Method Room Air Narrative Exam Narrative: General: Older gentleman sitting in bed appears mildly uncomfortable, in no acute distress, appears older than stated age, well-developed, well-nourished, appropriately interactive. HEENT: Normocephalic, atraumatic. External ears without defect. Pupils equal, round, and reactive to light. Anicteric sclerae, moist conjunctivae, and no lid lag. Neck: Supple with full range of motion. No lymphadenopathy or thyromegaly. Cardiovascular: Regular rate and rhythm without murmurs, rubs, or gallops appreciated Pulmonary: Clear to auscultation bilaterally without crackles, wheezes, or rhonchi. Normal respiratory effort with no use of accessory muscles. Abdomen: Soft, bowel sounds present, mild tenderness to palpation epigastrium, nondistended. No hepatosplenomegaly or masses appreciated. Extremities: No clubbing, cyanosis, or edema. Large vertical scars on knees bilaterally. Skin: Normal temperature, turgor, and texture; no rash, ulcers, or subcutaneous nodules appreciated. Neurological: Cranial nerves grossly intact. Psychiatric: Normal mood and affect. Alert and oriented to person, place, and time. Objective Labs Result Diagrams: 08/23/18 14:25 02/21/19 05:08 Labs: Laboratory Results - last 24 hr 08/22/18 08/22/18 08/22/18 19:05 23:11 23:11 WBC RBC Hgb Hct MCV MCH MCHC RDW Plt Count Neut % (Auto) Lymph % (Auto) [place] % (Auto) Eos % (Auto) Baso % (Auto) Neut # (Auto) Lymph # (Auto) [place] # (Auto) Eos # (Auto) Baso # (Auto) Sodium 129 L Potassium 2.6 L* Chloride 92 L Carbon Dioxide 27 BUN 28 H Creatinine 0.90 Estimated GFR > 60.0 BUN/Creatinine Ratio 31.1 H Glucose 119 H Calcium 7.3 L Magnesium 1.6 Total Bilirubin Conjugated Bilirubin Unconjugated Bilirubin AST ALT Alkaline Phosphatase C-Reactive Protein 6.1 H Total Protein Albumin Globulin Albumin/Globulin Ratio Triglycerides Cholesterol LDL Cholesterol, Calc VLDL Cholesterol HDL Cholesterol Lipase Urine RBC 1-5/hpf Urine WBC 5-10/hpf H Urine Bacteria None seen Ur Culture Indicated? Specimen cultured 08/23/18 08/23/18 08/23/18 05:08 05:08 05:08 WBC RBC Hgb Hct MCV MCH MCHC RDW Plt Count Neut % (Auto) Lymph % (Auto) [place] % (Auto) Eos % (Auto) Baso % (Auto) Neut # (Auto) Lymph # (Auto) [place] # (Auto) Eos # (Auto) Baso # (Auto) Sodium 130 L Potassium 2.5 L* Chloride 93 L Carbon Dioxide 28 BUN 27 H Creatinine 0.80 Estimated GFR > 60.0 BUN/Creatinine Ratio 33.8 H Glucose 105 Calcium 7.2 L Magnesium 1.6 Total Bilirubin 1.8 H Conjugated Bilirubin 0.0 Unconjugated Bilirubin 0.7 AST 220 H ALT 245 H Alkaline Phosphatase 58 C-Reactive Protein Total Protein 5.5 L Albumin 2.9 L Globulin 2.6 Albumin/Globulin Ratio 1.1 Triglycerides 63 Cholesterol 162 LDL Cholesterol, Calc 101 H VLDL Cholesterol 13 HDL Cholesterol 48 Lipase 70339 H D Urine RBC Urine WBC Urine Bacteria Ur Culture Indicated? 08/23/18 14:25 WBC 7.9 RBC 3.71 L Hgb 12.5 L Hct 36.7 L MCV 98.9 MCH 33.7 MCHC 34.0 RDW 15.9 H Plt Count 320 Neut % (Auto) 88.5 H Lymph % (Auto) 5.2 L [place] % (Auto) 6.1 Eos % (Auto) 0.0 L Baso % (Auto) 0.2 Neut # (Auto) 7000 Lymph # (Auto) 400 L [place] # (Auto) 500 Eos # (Auto) 0 Baso # (Auto) 0 Sodium Potassium Chloride Carbon Dioxide BUN Creatinine Estimated GFR BUN/Creatinine Ratio Glucose Calcium Magnesium Total Bilirubin Conjugated Bilirubin Unconjugated Bilirubin AST ALT Alkaline Phosphatase C-Reactive Protein Total Protein Albumin Globulin Albumin/Globulin Ratio Triglycerides Cholesterol LDL Cholesterol, Calc VLDL Cholesterol HDL Cholesterol Lipase Urine RBC Urine WBC Urine Bacteria Ur Culture Indicated? Assessment & Plan Assessment & Plan narrative: Deepak Quintanilla is a 62-year-old male with a past medical history significant for hypertension, ITZEL, small hiatal hernia, diverticulosis, left renal cyst who presented to the ED on 08/22/2018 with complaints of epigastric pain with associated nausea vomiting. 1. Acute alcoholic pancreatitis, present on admission. Active. -Patient presented with epigastric discomfort with associated [place] [address]. No SIRS or indications for sepsis. No associated respiratory, cardiovascular, or renal failure. -Patient with history of moderate alcohol use several beers and mixed drinks per day. -CT chest abdomen and pelvis demonstrated gallbladder WNL; biliary system non- dilated; pancreas enhances normally; inflammatory changes and free fluid adjacent to the pancreas compatible w/ acute pancreatitis; no pancreatic pseudocyst. -U/S of Abdomen revealed adherent stone vs polyp in the gallbladder. Complex left renal focus. LUQ fluid of uncertain etiology. Pancreas is not well visualized, taking into account CT findings, is suspected to be r/t pancreatitis. -MRCP did not demonstrate any cholelithiasis or choledocholithiasis. -Continue aggressive fluid resuscitation with normal saline at 150 mL/hr. -Strict I/O monitoring. -Pain control with IV Dilaudid 1 mg every 3 hr as needed for severe pain and Zofran as needed for nausea.. -NPO for bowel rest and will advance diet slowly as tolerated. -Discontinue toxic medications. -Monitor for complications abdominal compartment syndrome, bowel infarction and or perforation, peripancreatic vascular complications, etc. -Recommend abstaining from alcohol indefinitely. 2. Possible acute Ileus, complication of acute pancreatitis, present on a dmission. Active. -No abdominal distention. No emesis. Patient reports having normal bowel movements. -May need to consider NG tube, will monitor for now -NPO for bowel rest and will advance diet slowly as tolerated. -MRCP did not demonstrate ileus versus small partial small-bowel obstruction and fluid in the paracolic gutter, therefore, likely just inflammatory changes secondary to acute pancreatitis. 3. Acute hypovolemia, present on admission. Active. -2/2 GI losses and hypermetabolic state. -Continue aggressive IV fluid resuscitation as above. 4. Acute hypokalemia, present on admission. Active. -Significant hypokalemia with initial potassium level 2.2 possibly reflective of beer potomania. Received potassium chloride 40 mEq IV x1. Will continue to replete as needed. -Continue to monitor closely on telemetry. 5. Essential hypertension, chronic condition, controlled with once daily ARB, currently normotensive -Monitor and trend BP. -Hold ARB... re: at risk for LAURO and sepsis. Disposition: Likely to discharge in several days once pancreatitis has resolved.
[2018-08-23 15:15] LABS: Blood Urea Nitrogen 24 mg/dL (9-20); Carbon Dioxide 25 mmol/L (22-32); Chloride 97 mmol/L (98-107); Estimated Glomerular Filt Rate > 60.0 mL/min (>60); Glucose 111 mg/dL (80-110); HEMOLYSIS 31 (0-50); Magnesium 2.7 mg/dL (1.6-2.3); Sodium 131 mmol/L (137-145)
[2018-08-23 15:24] LABS: Calcium 6.9 mg/dL (8.4-10.2)
[2018-08-23] MEDS: ONDANSETRON 4 MG/2 ML INJ IV (21:03)
[2018-08-23] MEDS: SODIUM CHLORIDE 0.9% 1,000 ML 200 ML IV (22:27)
[2018-08-24] VITALS (13 sets, daily range): BP systolic 101–123; BP diastolic 68–89; PULSE 90–98; RESP 18–20; TEMP 35.1–36.8; O2SAT 86–98
[2018-08-24] MEDS: HYDROMORPHONE 1 MG INJ IV ×7 (00:20→23:59)
[2018-08-24 06:17] LABS: Add Manual Diff / Slide Review NO; Basophils Absolute Auto 0 /uL (0-100); Basophils Percent Auto 0.2 % (0-2); Eosinophils Absolute Auto 0 /uL (0-450); Eosinophils Percent Auto 0.1 % (2-4); Hematocrit 34.4 % (41-53); Hemoglobin 11.7 g/dL (13.5-17.5); Lymphocytes Absolute Auto 200 /uL (1100-4500); Mean Corpuscular HGB Conc 33.9 % (30-36); Mean Corpuscular Hemoglobin 33.8 PG (26-34); Mean Corpuscular Volume 99.7 fL (80-100); Monocytes Absolute Auto 200 /uL (0-900); Monocytes Percent Auto 8.1 % (3-14); Neutrophils Absolute Auto 2200 /uL (1500-7000); Neutrophils Percent Auto 83.6 % (50-75); Platelet Count 280 X10^3/uL (150-400); Red Blood Cell Count 3.45 X10^6/uL (4.5-5.9); Red Cell Distribution Width 16.2 % (11.6-14.8); White Blood Cell Count 2.6 X10^3/uL (4.5-11.0)
[2018-08-24 06:21] LABS: Alanine Aminotransferase 151 IU/L (21-72); Albumin 2.7 g/dL (3.5-5.0); Alkaline Phosphatase 49 U/L (38-126); Aspartate Aminotransferase 115 IU/L (17-59); Bilirubin Total 1.7 mg/dL (0.2-1.3); Blood Urea Nitrogen 21 mg/dL (9-20); Calcium 6.8 mg/dL (8.4-10.2); Carbon Dioxide 25 mmol/L (22-32); Chloride 98 mmol/L (98-107); Estimated Glomerular Filt Rate > 60.0 mL/min (>60); Globulin 2.8 g/dL (1.7-4.1); Glucose 121 mg/dL (80-110); HEMOLYSIS < 15 (0-50); Lipase 1544 U/L (23-300); Magnesium 2.3 mg/dL (1.6-2.3); Potassium 2.8 mmol/L (3.4-5.1); Sodium 132 mmol/L (137-145); Total Protein 5.5 g/dL (6.3-8.2)
[2018-08-24 06:48] LABS: Procalcitonin 0.64 ng/mL (<0.5)
--- NOTE | 2018-08-24 07:25 | P.PN_ITS ---
Subjective Date Patient Seen: 08/24/18 Interval history: Deepak Quintanilla is a 62-year-old male with a past medical history significant for hypertension, ITZEL, small hiatal hernia, diverticulosis, left renal cyst who presented to the ED with complaints of epigastric pain with associated nausea and vomiting admitted for acute alcoholic pancreatitis. The patient is resting in bed comfortably. He reports his intermittent mid abdominal pain. He reports that it was right-sided radiating to mid abdomen and the right-sided abdominal pain has resolved. He endorses hunger and the plan to is to try to slowly advanced his diet again with clear liquids today. He reports he had clear liquids yesterday evening with nausea afterward. He denies headache, shortness of breath, chest pain, nausea, vomiting, fever, chills, dysuria, diarrhea or constipation. He is voiding without difficulty. He is up ambulating minimally due to pain without assistance. Exam Vital Signs (past 8 hours): - 08/24/18 00:00 08/24/18 00:23 08/24/18 04:00 Temperature 98.0 F 95.2 F L Pulse Rate 98 H 97 H Respiratory Rate 18 20 Blood Pressure 104/74 101/68 Pulse Oximetry 91 92 95 Oxygen Delivery Method Room Air Oxygen Flow Rate 2 Narrative Exam Narrative: General: Older gentleman sitting in bed appears mildly uncomfortable, in no acute distress, appears older than stated age, well-developed, well-nourished, appropriately interactive. HEENT: Normocephalic, atraumatic. External ears without defect. Pupils equal, round, and reactive to light. Anicteric sclerae, moist conjunctivae, and no lid lag. Neck: Supple with full range of motion. No lymphadenopathy or thyromegaly. Cardiovascular: Regular rate and rhythm without murmurs, rubs, or gallops appreciated Pulmonary: Clear to auscultation bilaterally without crackles, wheezes, or rhonchi. Normal respiratory effort with no use of accessory muscles. Abdomen: Soft, bowel sounds present, mild tenderness to palpation mid abdomen, nondistended. No hepatosplenomegaly or masses appreciated. Extremities: No clubbing, cyanosis, or edema. Large vertical scars on knees bilaterally. Skin: Normal temperature, turgor, and texture; no rash, ulcers, or subcutaneous nodules appreciated. Neurological: Cranial nerves grossly intact. Psychiatric: Normal mood and affect. Alert and oriented to person, place, and time. Objective Labs Result Diagrams: 08/24/18 05:08 08/24/18 05:08 Labs: Laboratory Results - last 24 hr 08/23/18 08/23/18 08/23/18 05:08 05:08 14:25 WBC 7.9 RBC 3.71 L Hgb 12.5 L Hct 36.7 L MCV 98.9 MCH 33.7 MCHC 34.0 RDW 15.9 H Plt Count 320 Neut % (Auto) 88.5 H Lymph % (Auto) 5.2 L [place] % (Auto) 6.1 Eos % (Auto) 0.0 L Baso % (Auto) 0.2 Neut # (Auto) 7000 Lymph # (Auto) 400 L [place] # (Auto) 500 Eos # (Auto) 0 Baso # (Auto) 0 Sodium 130 L Potassium 2.5 L* Chloride 93 L Carbon Dioxide 28 BUN 27 H Creatinine 0.80 Estimated GFR > 60.0 BUN/Creatinine Ratio 33.8 H Glucose 105 Calcium 7.2 L Magnesium 1.6 Total Bilirubin 1.8 H Conjugated Bilirubin 0.0 Unconjugated Bilirubin 0.7 AST 220 H ALT 245 H Alkaline Phosphatase 58 Total Protein 5.5 L Albumin 2.9 L Globulin 2.6 Albumin/Globulin Ratio 1.1 Lipase 39683 H D Procalcitonin 08/23/18 08/24/18 08/24/18 14:25 05:08 05:08 WBC 2.6 L D RBC 3.45 L Hgb 11.7 L Hct 34.4 L MCV 99.7 MCH 33.8 MCHC 33.9 RDW 16.2 H Plt Count 280 Neut % (Auto) 83.6 H Lymph % (Auto) 8.0 L [place] % (Auto) 8.1 Eos % (Auto) 0.1 L Baso % (Auto) 0.2 Neut # (Auto) 2200 Lymph # (Auto) 200 L [place] # (Auto) 200 Eos # (Auto) 0 Baso # (Auto) 0 Sodium 131 L Potassium 3.0 L Chloride 97 L Carbon Dioxide 25 BUN 24 H Creatinine 0.60 L Estimated GFR > 60.0 BUN/Creatinine Ratio 40.0 H Glucose 111 H Calcium 6.9 L Magnesium 2.7 H Total Bilirubin Conjugated Bilirubin Unconjugated Bilirubin AST ALT Alkaline Phosphatase Total Protein Albumin Globulin Albumin/Globulin Ratio Lipase Procalcitonin 0.64 H 08/24/18 05:08 WBC RBC Hgb Hct MCV MCH MCHC RDW Plt Count Neut % (Auto) Lymph % (Auto) [place] % (Auto) Eos % (Auto) Baso % (Auto) Neut # (Auto) Lymph # (Auto) [place] # (Auto) Eos # (Auto) Baso # (Auto) Sodium 132 L Potassium 2.8 L Chloride 98 Carbon Dioxide 25 BUN 21 H Creatinine 0.70 Estimated GFR > 60.0 BUN/Creatinine Ratio 30.0 H Glucose 121 H Calcium 6.8 L Magnesium 2.3 Total Bilirubin 1.7 H Conjugated Bilirubin Unconjugated Bilirubin AST 115 H ALT 151 H Alkaline Phosphatase 49 Total Protein 5.5 L Albumin 2.7 L Globulin 2.8 Albumin/Globulin Ratio 1.0 Lipase 1544 H D Procalcitonin Assessment & Plan Assessment & Plan narrative: Deepak Quintanilla is a 62-year-old male with a past medical history significant for hypertension, ITZEL, small hiatal hernia, diverticulosis, left re nal cyst who presented to the ED with complaints of epigastric pain with associated nausea and vomiting admitted for acute alcoholic pancreatitis. 1. Acute alcoholic pancreatitis, present on admission. Active. -Patient presented with epigastric discomfort with associated nausea [place] [address]. No SIRS or indications for sepsis. No associated respiratory, cardiovascular, or renal failure. -Patient with history of moderate alcohol use with several beers and mixed drinks per day. Of note, he has reported several different frequencies and amounts of alcohol to different providers. -CT chest abdomen and pelvis demonstrated gallbladder WNL; biliary system non- dilated; pancreas enhances normally; inflammatory changes and free fluid adjacent to the pancreas compatible w/ acute pancreatitis; no pancreatic pseudocyst. -U/S of Abdomen revealed adherent stone vs polyp in the gallbladder. Complex left renal focus. LUQ fluid of uncertain etiology. Pancreas is not well visualized, taking into account CT findings, is suspected to be r/t pancreatitis. -MRCP did not demonstrate any cholelithiasis or choledocholithiasis. -Continue fluid resuscitation with normal saline at 100 mL/hr. -Strict I/O monitoring. -Pain control with IV Dilaudid 1 mg every 3 hr as needed for severe pain and Zofran as needed for nausea.. -Will slowly advance diet as tolerated today with clears initially. -Monitor for complications abdominal compartment syndrome, bowel infarction and or perforation, peripancreatic vascular complications, infection, etc. -Recommend abstaining from alcohol indefinitely. 2. Possible acute Ileus, complication of acute pancreatitis, present on admission. Stable. -No abdominal distention. No emesis. Patient reports having normal bowel movements up to admission. -NPO for bowel rest and will advance diet slowly as tolerated as above. -MRCP did not demonstrate ileus or partial small-bowel obstruction and fluid in the paracolic gutter, therefore, likely just inflammatory changes secondary to acute pancreatitis versus true ileus/SBO. 3. Acute hypovolemia, present on admission. Resolved. -2/2 GI losses and hypermetabolic state. -Continue IV fluid resuscitation as above. 4. Acute hypokalemia, present on admission. Active. -Significant hypokalemia with initial potassium level 2.2 possibly reflective of beer potomania? Received potassium chloride 40 mEq IV x1 and now receiving 80 mEq x 1 today. Will continue to replete as needed. -Continue to monitor closely on telemetry. 5. Essential hypertension, chronic condition, controlled with once daily ARB, currently normotensive -Monitor and trend BP. -Hold ARB... re: at risk for LAURO and sepsis. 6. Alcoholism, chronic, present on admission. Stable. -Patient denies history of alcohol withdrawal, alcohol withdrawal seizures or DT's. -Will watch for signs and symptoms of alcohol withdrawal. Disposition: Likely to discharge in several days once pancreatitis has resolved and he is tolerating advancement of diet.
[2018-08-24] MEDS: POTASSIUM CHLORIDE 80 MEQ in SODIUM CHLORIDE 0.9% 1,000 ML 130 ML IV (08:00)
[2018-08-24] MEDS: HEPARIN 5,000 UNIT/ML VIAL 5000 UNIT SUBCUT ×2 (08:05→20:59)
--- NOTE | 2018-08-24 10:24 | CM.IDA ---
Discharge Planning/Care Management CM Discharge Assessment Start: 08/24/18 09:54 Freq: Status: Active Protocol: Document 08/24/18 09:54 INOCENTE (Rec: 08/24/18 10:24 INOCENTE [id number]) Discharge Planning Assessment Assigned Industrial Design Engineer ERNIE Trammell DPOA/Assigned Designee Name Silas King mom Contact Information [phone] Advance Directives? No History Provided By Patient Prior Living Arrangements House Household Members spouse family Type of transporation used prior to Drives own vehicle admit Independent with ADL's Yes Is patient alert and oriented? Yes Barriers to Discharge No Comment Pt here w/acute alcoholic pancreatitis. Payer: Medicare. Reviewed chart. Pt indp at baseline, lives w/family. According to Dr Pena, pt under reported his alcohol use upon admission. He has updated his report from a few drinks weekly to multiple beers, possibly also mixed drinks daily. Following closely for s/sx of w/d; pt states he has no h/o w/d. Pt will remain admitted until resolution of his acute pancreatitis and diet can be advanced. Likely return home upon medical clearance. Dr Pena recommending abstinence from alcohol. Following for SW / DC Planning needs. ERNIE Mackey Discharge Plan Home Transportation Arrangement Family Referrals Initiated None needed Additional Comment At this time. Review Status In Process
--- NOTE | 2018-08-24 11:03 | PC.NURSE ---
pt.a/o x 4. Moaning, c/o lower abd. pain. Given IV diladid. Will monitor for pain relief.
[2018-08-24] MEDS: SODIUM CHLORIDE 0.9% FLUSH 10 ML IV (21:01)
[2018-08-24] MEDS: SODIUM CHLORIDE 0.9% 1,000 ML 200 ML IV (22:30)
[2018-08-25] VITALS (7 sets, daily range): BP systolic 118–144; BP diastolic 84–100; PULSE 102–108; RESP 19–24; TEMP 36.4–36.7; O2SAT 88–96
[2018-08-25] MEDS: HYDROMORPHONE 1 MG INJ IV ×4 (03:46→20:13)
[2018-08-25] MEDS: SODIUM CHLORIDE 0.9% 1,000 ML 200 ML IV (03:47)
[2018-08-25 05:24] LABS: Hematocrit 31.5 % (41-53); Hemoglobin 10.6 g/dL (13.5-17.5); Mean Corpuscular HGB Conc 33.6 % (30-36); Mean Corpuscular Hemoglobin 33.9 PG (26-34); Mean Corpuscular Volume 100.9 fL (80-100); Platelet Count 266 X10^3/uL (150-400); Red Blood Cell Count 3.12 X10^6/uL (4.5-5.9); Red Cell Distribution Width 15.8 % (11.6-14.8)
[2018-08-25 05:26] LABS: Add Manual Diff / Slide Review YES
[2018-08-25 05:31] LABS: Alanine Aminotransferase 109 IU/L (21-72); Albumin 2.2 g/dL (3.5-5.0); Albumin Globulin Ratio 0.8 (1.0-2.8); Alkaline Phosphatase 42 U/L (38-126); Aspartate Aminotransferase 66 IU/L (17-59); BUN Creatinine Ratio 23.3 (6-22); Bilirubin Total 1.5 mg/dL (0.2-1.3); Blood Urea Nitrogen 14 mg/dL (9-20); Carbon Dioxide 23 mmol/L (22-32); Chloride 100 mmol/L (98-107); Estimated Glomerular Filt Rate > 60.0 mL/min (>60); Globulin 2.6 g/dL (1.7-4.1); Glucose 84 mg/dL (80-110); HEMOLYSIS < 15 (0-50); Lipase 360 U/L (23-300); Sodium 131 mmol/L (137-145); Total Protein 4.8 g/dL (6.3-8.2)
[2018-08-25 05:41] LABS: Neutrophils Absolute Manual 3000 /uL (3000-5900); Total Cells Counted 100
[2018-08-25 05:43] LABS: Anisocytosis 1+
[2018-08-25 05:46] LABS: Calcium 5.8 mg/dL (8.4-10.2); Potassium 2.3 mmol/L (3.4-5.1)
--- NOTE | 2018-08-25 05:46 | PC.NURSE ---
Notified RADHA Wang of critical labs: Ca+= 5.8, K+= 2.3
[2018-08-25 05:55] LABS: Magnesium 1.8 mg/dL (1.6-2.3)
[2018-08-25] MEDS: POTASSIUM CHLORIDE 20 MEQ/15 ML UDC 40 MEQ PO ×2 (06:27→08:35)
--- NOTE | 2018-08-25 06:43 | PC.NURSE ---
Potassium Anastasia order changed from 80 meq po now (0600) to 40 meq po now and 40 meq po in an hour from first dose to reduce stomach irritation per Pharmacy's suggestion.
[2018-08-25 06:45] LABS: HEMOLYSIS < 15 (0-50)
[2018-08-25 06:51] LABS: Potassium 2.7 mmol/L (3.4-5.1)
--- NOTE | 2018-08-25 08:47 | DI.RAD.S_ITS ---
PROCEDURE: XR CHEST 2V INDICATIONS: sob and difficulty breathing. TECHNIQUE: 2 views of the chest were acquired. COMPARISON: None. FINDINGS: Surgical changes and devices: None. Lungs and pleura: Trace bilateral pleural effusions. Bibasilar opacities left greater than right concerning for aspiration versus pneumonia. No pneumothorax. Mediastinum: Mediastinal contours are normal. Heart size is normal. Bones and chest wall: No suspicious bony abnormalities. Soft tissues appear unremarkable. IMPRESSION: Bibasilar lung opacities left greater than right which is 4 aspiration versus pneumonia. Dictated by: Edwina Arreola MD, PhD on 08/25/2018 at 9:06 Approved by: Edwina Arreola MD, PhD on 08/25/2018 at 9:07
[2018-08-25 09:17] LABS: B Type Natriuretic Peptide < 100 (<100)
[2018-08-25] MEDS: FUROSEMIDE 20 MG/2 ML VIAL IV (09:17)
[2018-08-25] MEDS: HEPARIN 5,000 UNIT/ML VIAL 5000 UNIT SUBCUT ×2 (09:17→20:16)
[2018-08-25 09:31] LABS: HCO3 ABG 19 mmol/L (22-26); PCO2 ABG 37.8 mmHg (35-45); PO2 ABG 51 mmHg (80-100); TCO2 ABG 20 mmol/L (21-31)
[2018-08-25 09:32] LABS: Fractionated Inspired Oxygen 0.21
[2018-08-25 09:35] LABS: Oxygen Saturation ABG 83 % (95-100)
--- NOTE | 2018-08-25 10:13 | PC.NURSE ---
pt. up to br with 2 assist. pt. weak and sob. Voided and cleaned himself with warm water and given new gown. BTB with 2 assist cont. with sob and weakness.
[2018-08-25] MEDS: PIPERACILLIN-TAZO 3.375 GM/50 ML FROZ.PIGGY IV ×2 (10:27→18:53)
[2018-08-25] MEDS: POTASSIUM CHLORIDE 60 MEQ in SODIUM CHLORIDE 0.9% 500 ML 88.333 ML IV (11:31)
--- NOTE | 2018-08-25 11:52 | P.PN_ITS ---
Subjective Date Patient Seen: 08/25/18 Interval history: Chart reviewed patient seen and examined. The patient is a 62-year-old male who was admitted to the hospital for alcoholic pancreatitis. Over night he has become markedly short of breath. He is requiring significant oxygen. He is noted to be hypoxemic. Patient reports feeling short of breath. His appetite is poor although he is attempting to eat. He has no chest pain cough or fever. Exam Vital Signs (past 8 hours): - 08/25/18 07:40 08/25/18 09:00 08/25/18 11:02 Temperature 97.6 F Pulse Rate 106 H Respiratory Rate 24 Blood Pressure 134/89 Pulse Oximetry 91 88 L 96 Fraction of Inspired Oxygen 32 Oxygen Delivery Method Nasal Cannula Oxygen Flow Rate 3 Narrative Exam Narrative: Ill appearing male short of breath Lungs: Decreased breath sounds with diffuse crackles and rhonchi in the bases Cardiac exam: Tachycardic regular rate and rhythm normal S1-S2 Abdomen: Soft nontender nondistended Extremities: No edema Objective Labs Result Diagrams: 08/25/18 04:53 08/25/18 06:24 Labs: Laboratory Results - last 24 hr 08/25/18 08/25/18 08/25/18 04:50 04:53 04:53 WBC 4.0 L D RBC 3.12 L Hgb 10.6 L Hct 31.5 L MCV 100.9 H MCH 33.9 MCHC 33.6 RDW 15.8 H Plt Count 266 Neut % (Auto) Not Reportable Lymph % (Auto) Not Reportable [place] % (Auto) Not Reportable Eos % (Auto) Not Reportable Baso % (Auto) Not Reportable Lymph # (Auto) Not Reportable [place] # (Auto) Not Reportable Baso # (Auto) Not Reportable Total Counted 100 Seg Neutrophils % 49.0 Band Neutrophils % 26.0 H Lymphocytes % (Manual) 10.0 L Monocytes % (Manual) 14.0 H Basophils % (Manual) 1.0 Neutrophils # (Manual) 3000 RBC Morphology See below Anisocytosis 1+ H ABG pH ABG pCO2 ABG pO2 ABG HCO3 ABG Total CO2 ABG O2 Saturation ABG Base Excess FiO2 Sodium Potassium Chloride Carbon Dioxide BUN Creatinine Estimated GFR BUN/Creatinine Ratio Glucose Calcium Magnesium 1.8 Total Bilirubin AST ALT Alkaline Phosphatase B-Natriuretic Peptide < 100 Total Protein Albumin Globulin Albumin/Globulin Ratio Lipase 08/25/18 08/25/18 08/25/18 04:53 06:24 09:15 WBC RBC Hgb Hct MCV MCH MCHC RDW Plt Count Neut % (Auto) Lymph % (Auto) [place] % (Auto) Eos % (Auto) Baso % (Auto) Lymph # (Auto) [place] # (Auto) Baso # (Auto) Total Counted Seg Neutrophils % Band Neutrophils % Lymphocytes % (Manual) Monocytes % (Manual) Basophils % (Manual) Neutrophils # (Manual) RBC Morphology Anisocytosis ABG pH 7.30 L ABG pCO2 37.8 ABG pO2 51 L ABG HCO3 19 L ABG Total CO2 20 L ABG O2 Saturation 83 L* ABG Base Excess -8.0 L FiO2 0.21 Sodium 131 L Potassium 2.3 L* 2.7 L* Chloride 100 Carbon Dioxide 23 BUN 14 Creatinine 0.60 L Estimated GFR > 60.0 BUN/Creatinine Ratio 23.3 H Glucose 84 Calcium 5.8 L* Magnesium Total Bilirubin 1.5 H AST 66 H ALT 109 H Alkaline Phosphatase 42 B-Natriuretic Peptide Total Protein 4.8 L Albumin 2.2 L Globulin 2.6 Albumin/Globulin Ratio 0.8 L Lipase 360 H D Assessment & Plan Assessment & Plan narrative: 1. Acute hypoxic respiratory failure 2. Probable aspiration pneumonia 3. Acute alcoholic pancreatitis, present on admission 4. Hypokalemia Plan the patient will be started on Zosyn for probable aspiration pneumonia. Will Hep-Lock his IV fluids given his significant shortness of breath hypoxia in addition will continue to his van advanced diet as tolerated.
--- NOTE | 2018-08-25 13:13 | CM.DANOTE ---
DCP Assessment: Per MD, pt with acute pancreatitis and trying to advance his diet and pt still in some pain and overnight became quite SOB and requiring oxygen. Chest xray shows likely aspiration pneumonia. Per RN, pt has required 1 to 2PA up to bathroom and seems unsteady on his feet. No CIWA protocol in place. SW met bedside with pt and explained role and updated white board. Pt confirms that he recently moved up from [place] to assist his mother and has been staying with his mom on [address]. His mother is fairly Independent with ADL's but will need additional assist when she has her cataract surgery in the near future. Pt states that he is typically Independent himself with ADL's and denies any hx of HH or SNF. Pt states that his Uncle also lives on [facility] and could possibly provide some assist if needed when he discharges. Pt unsure if he will have any d/c planning needs. Pt could possibly benefit from PT eval since pt seems to be below baseline with his ADL's. Plan: SW to follow closely for possible PT orders towards identifying any d/c planning needs and if pt will be safe for d/c home with his elderly mother when medically stable. ERNIE Griggs
--- NOTE | 2018-08-25 13:52 | PC.NURSE ---
Addendum entered by Traah Stubbs 08/25/18 14:26: pt sob this am, very agitated. O2 increased to [address] Yang contacted, ordered IV Lasix and chest x-ray. Original Note: Pt. up to BR with 2 assist. Weak, sob and very unsteady on his feet. Voided and gave sponge bath independently. Episode of Tachycardia of 143 while ambulating back to bed. HR down to 100 to 105 after resting and on 02 back on.
--- NOTE | 2018-08-25 14:33 | PC.NURSE ---
Assessment- Pt having increased sob this morning. BS with faint crackles and Pt is on 2l of o2 at 91%. He also had jugular vein distention. IVR infusing at 200cc/hr, this has been stopped. gave orders to get stat chest xray, BNP, ABGs and all have been done. She states that pt has aspiration pneumonia. Lasix 20mg iv also given, and pts breathing eventually slowed down and got better. He is still having some discomfort to his abdomen and is getting 1mg of iv dilaudid every few hours. He was up to the bathroom, and heartrate up to 142. Laid back down and he seems to be better now. He is asking more pain medication, will be giving this to him shortly. He gave him self a wash up and is watching television.
[2018-08-26] VITALS (14 sets, daily range): BP systolic 109–156; BP diastolic 61–96; PULSE 89–108; RESP 14–24; TEMP 36.1–37.2; O2SAT 86–98
--- NOTE | 2018-08-26 | DI.RAD.S_ITS ---
PROCEDURE: XR CHEST 1V INDICATIONS: Shortness of breath, wheezing TECHNIQUE: One view of the chest was acquired. COMPARISON: [facility], CR, XR CHEST 2V, 08/25/2018, 8:58. FINDINGS: Surgical changes and devices: None. Lungs and pleura: Bibasilar and retrocardiac opacities are present, appearing slightly more prominent when compared to prior exam. Mediastinum: Mediastinal contours appear normal. Heart size is normal. Bones and chest wall: No suspicious bony lesions. Overlying soft tissues appear unremarkable. IMPRESSION: Mild interval worsening of bibasilar and retrocardiac opacity suggestive of pneumonia. Dictated by: Elsa Murphy M.D. on 08/26/2018 at 20:01 Approved by: Elsa Murphy M.D. on 08/26/2018 at 20:02
[2018-08-26] MEDS: HYDROMORPHONE 1 MG INJ IV ×5 (00:52→19:40)
[2018-08-26] MEDS: PIPERACILLIN-TAZO 3.375 GM/50 ML FROZ.PIGGY IV ×3 (02:16→17:35)
--- NOTE | 2018-08-26 03:07 | PC.NURSE ---
Pt continues to have low grade pain with some relief from 1 mg IVP dilaudid. IV in R hand occluded, L FA changed dressing, is positional. Pt tolerating IV ABOs well. O2 sat 96 on 3L. Pt does not like to be on continuous oximetry.
[2018-08-26 07:26] LABS: Add Manual Diff / Slide Review NO; BUN Creatinine Ratio 23.3 (6-22); Basophils Absolute Auto 0 /uL (0-100); Basophils Percent Auto 0.2 % (0-2); Blood Urea Nitrogen 14 mg/dL (9-20); Calcium 6.8 mg/dL (8.4-10.2); Carbon Dioxide 24 mmol/L (22-32); Chloride 97 mmol/L (98-107); Eosinophils Absolute Auto 100 /uL (0-450); Eosinophils Percent Auto 1.3 % (2-4); Estimated Glomerular Filt Rate > 60.0 mL/min (>60); Glucose 100 mg/dL (80-110); HEMOLYSIS < 15 (0-50); Hematocrit 32.5 % (41-53); Lipase 253 U/L (23-300); Lymphocytes Absolute Auto 700 /uL (1100-4500); Mean Corpuscular HGB Conc 33.9 % (30-36); Mean Corpuscular Volume 100.3 fL (80-100); Monocytes Absolute Auto 800 /uL (0-900); Neutrophils Absolute Auto 3200 /uL (1500-7000); Neutrophils Percent Auto 67.5 % (50-75); Platelet Count 265 X10^3/uL (150-400); Red Blood Cell Count 3.24 X10^6/uL (4.5-5.9); Red Cell Distribution Width 15.5 % (11.6-14.8); Sodium 131 mmol/L (137-145); White Blood Cell Count 4.8 X10^3/uL (4.5-11.0)
[2018-08-26 07:28] LABS: Potassium 2.6 mmol/L (3.4-5.1)
--- NOTE | 2018-08-26 09:45 | PM.PN.1 ---
Subjective Date Patient Seen: 08/26/18 Interval history: The patient is a 62 y/o male admitted for acute alcoholic pancreatitis who developed hyoxia yesterday. Chest Xray confirms basilar infiltrates suggestive of aspiration. Patient remains hypoxic today with a room air O2 saturation of 86%, O2 sat improves to 92 % on 2 liters. Patient continues to report abdominal pain. He is tolerating his clear liquid diet and is interested in advancing to a usual diet. He has had no hallucinations or evidence of alcohol withdrawal. Exam Vital Signs (past 8 hours): - 08/26/18 04:46 08/26/18 08:00 08/26/18 08:50 Temperature 97 F L 97.4 F L Pulse Rate 94 H 89 Respiratory Rate 20 20 Blood Pressure 129/96 H 125/88 Pulse Oximetry 96 96 98 08/26/18 08:59 08/26/18 09:05 08/26/18 09:13 Temperature Pulse Rate Respiratory Rate Blood Pressure Pulse Oximetry 86 L 96 93 Fraction of Inspired Oxygen 24 Oxygen Delivery Method Nasal Cannula Oxygen Flow Rate 1 Narrative Exam Narrative: Ill appearing Male Lungs: decreased breath sounds with occassional scattered rhonchi CV: RRR nl Sl S2 Abd: distended, soft/ tender/ no palpable masses, no rebound tenderness Ext: SCD's in place, no edema Objective Labs Result Diagrams: 08/26/18 07:05 08/26/18 07:05 Labs: Laboratory Results - last 24 hr 08/26/18 08/26/18 08/26/18 07:05 07:05 07:05 WBC 4.8 RBC 3.24 L Hgb 11.0 L Hct 32.5 L MCV 100.3 H MCH 34.0 MCHC 33.9 RDW 15.5 H Plt Count 265 Neut % (Auto) 67.5 Lymph % (Auto) 14.0 L [place] % (Auto) 17.0 H Eos % (Auto) 1.3 L Baso % (Auto) 0.2 Neut # (Auto) 3200 Lymph # (Auto) 700 L [place] # (Auto) 800 Eos # (Auto) 100 Baso # (Auto) 0 Sodium 131 L Potassium 2.6 L* Chloride 97 L Carbon Dioxide 24 BUN 14 Creatinine 0.60 L Estimated GFR > 60.0 BUN/Creatinine Ratio 23.3 H Glucose 100 Calcium 6.8 L Lipase 253 Assessment & Plan Assessment & Plan narrative: 1. Acute Hypoxic Respiratory Failure 2. Probable Aspiration Pneumonia 3. Acute Pancreatitis, secondary to alcohol, present on admission 4. Hypertension, chronic 5. Hypokalemia Plan: Continue Zosyn, advance diet, replace potassium. Home when no longer hypoxic
[2018-08-26] MEDS: POTASSIUM CHLORIDE 80 MEQ in SODIUM CHLORIDE 0.9% 1,000 ML 130 ML IV (10:00)
[2018-08-26 10:19] LABS: Magnesium 1.7 mg/dL (1.6-2.3)
[2018-08-26] MEDS: LORazepam 2 MG/ML SYRINGE 1 MG IV (11:30)
--- NOTE | 2018-08-26 12:39 | PC.NURSE ---
Addendum entered by Peyton Webb R.N. 08/26/18 15:30: Pt awoke @ 1400, combative and agitated with staff, pulled IV cath out. Stumbling from bed, staff assisted to keep from falling. Dr Yang notified, orders obtained for PO Diazepam. Given. Pt unable to state location or . Resp effort has increased, lungs are dim. Mouth breathing NC in 3L. Spo2 88-96% IV cath replaced after 4 attempts. 22ga L FA Original Note: Am shift Pt is becoming increasingly agitated with staff interventions, picking at Tele, IV lines, ect. Increased agitation and swearing if assistance if given. Discussed with Dr Yang and orders obtained for likely ETOH withdrawl. Ativan given with good effect. Cont pulse ox in place.
--- NOTE | 2018-08-26 14:41 | PM.EVENT ---
Date Patient Seen: 08/26/18 Patient is confused, combative, and has pulled his IV. He is delerious, from alcohol withdrawal. Will give 10 mg po diazepam now, resume IV Use prn ativan. Need to continue IV antibiotics for now.
[2018-08-26] MEDS: diazePAM 5 MG TABLET 10 MG PO (15:05)
--- NOTE | 2018-08-26 15:52 | CM.DPC ---
DCP/continued: Reviewed chart. Attempted to meet with patient but he was sound asleep. RN reports that last CIWA score was 16 Patient requiring medication for withdrawal. Per MD/respiratory, patient requiring 4liters 02 today. P: CM team to continue to follow for d/c planning needs. Re-attempt visit within the next 24-48hrs. ERNIE Horvath
[2018-08-26] MEDS: LORazepam 2 MG/ML SYRINGE IV (16:12)
[2018-08-26] MEDS: ALBUTEROL/IPRATROPIUM 3 ML AMPUL INH (20:00)
[2018-08-26] MEDS: HEPARIN 5,000 UNIT/ML VIAL 5000 UNIT SUBCUT (20:10)
[2018-08-27] VITALS (17 sets, daily range): BP systolic 117–147; BP diastolic 81–111; PULSE 97–113; RESP 16–32; TEMP 36.4–36.8; O2SAT 90–100
[2018-08-27] MEDS: HYDROMORPHONE 1 MG INJ IV ×5 (00:58→21:51)
[2018-08-27] MEDS: PIPERACILLIN-TAZO 3.375 GM/50 ML FROZ.PIGGY IV ×3 (01:06→18:50)
[2018-08-27] MEDS: LORazepam 2 MG/ML SYRINGE IV ×3 (03:47→21:52)
--- NOTE | 2018-08-27 05:09 | PC.NURSE ---
Pt DBP elevated this shift when was restless and uncomfortable and CIWA was 12. It is now 72; 107/72 after 2 mg IVP lorazepam. Pt has been breathing deeply and using accessory muscles on inspiration off and on this shift. Crackles have diminished.
[2018-08-27] MEDS: ALBUTEROL/IPRATROPIUM 3 ML AMPUL INH ×4 (05:14→18:02)
[2018-08-27 05:45] LABS: Lipase 291 U/L (23-300)
[2018-08-27 05:46] LABS: BUN Creatinine Ratio 14.3 (6-22); Blood Urea Nitrogen 10 mg/dL (9-20); Calcium 7.2 mg/dL (8.4-10.2); Carbon Dioxide 25 mmol/L (22-32); Chloride 98 mmol/L (98-107); Estimated Glomerular Filt Rate > 60.0 mL/min (>60); Glucose 90 mg/dL (80-110); HEMOLYSIS < 15 (0-50); Sodium 130 mmol/L (137-145)
[2018-08-27] MEDS: HEPARIN 5,000 UNIT/ML VIAL 5000 UNIT SUBCUT ×2 (09:03→21:52)
[2018-08-27] MEDS: SODIUM CHLORIDE 0.9% FLUSH 10 ML IV ×2 (09:03→21:52)
[2018-08-27] MEDS: POTASSIUM CHLORIDE 60 MEQ in SODIUM CHLORIDE 0.9% 500 ML 88.333 ML IV (09:53)
--- NOTE | 2018-08-27 16:16 | P.PN_ITS ---
Subjective Date Patient Seen: 08/27/18 Interval history: Deepak Quintanilla is a 62-year-old male with a past medical history significant for hypertension, ITZEL, small hiatal hernia, diverticulosis, left renal cyst who presented to the ED with complaints of epigastric pain with associated nausea and vomiting admitted for acute alcoholic pancreatitis. The patient is resting in bed comfortably. He reports his intermittent mid abdominal pain that is slowly improving. He continues to tolerate advancement of his diet now to regular/soft diet. He also endorses anxiety but denies formication, hallucinations, paranoid ideations. He has never had DTs or alcohol withdrawal seizures. His last CIWA score was 5. He denies headache, shortness of breath, chest pain, nausea, vomiting, fever, chills, dysuria, diarrhea or constipation. He is voiding and eliminating without difficulty. He is up ambulating minimally due to pain without assistance. Exam Vital Signs (past 8 hours): - 08/27/18 09:36 08/27/18 10:20 08/27/18 11:19 Temperature Pulse Rate Respiratory Rate Blood Pressure Pulse Oximetry 95 92 93 08/27/18 12:01 08/27/18 12:09 08/27/18 13:23 Temperature Pulse Rate 108 H Respiratory Rate 22 Blood Pressure 130/98 H Pulse Oximetry 96 99 94 08/27/18 14:05 08/27/18 16:04 Temperature 98.0 F Pulse Rate 106 H 111 H Respiratory Rate 32 H 22 Blood Pressure 119/81 Pulse Oximetry 94 93 Fraction of Inspired Oxygen 24 Oxygen Delivery Method Room Air Oxygen Flow Rate 0 Narrative Exam Narrative: General: Older gentleman sitting in bed appears comfortable but slightly anxious, in no acute distress, appears older than stated age, well-developed, well-nourished, appropriately interactive. HEENT: Normocephalic, atraumatic. External ears without defect. Pupils equal, round, and reactive to light. Anicteric sclerae, moist conjunctivae, and no lid lag. Neck: Supple with full range of motion. No lymphadenopathy or thyromegaly. Cardiovascular: Regular rate and rhythm without murmurs, rubs, or gallops appreciated Pulmonary: Clear to auscultation bilaterally without crackles, wheezes, or rhonchi. Normal respiratory effort with no use of accessory muscles. Abdomen: Soft, bowel sounds present, mild tenderness to palpation mid abdomen (improved), nondistended. No hepatosplenomegaly or masses appreciated. Extremities: No clubbing, cyanosis, or edema. Large vertical scars on knees bilaterally. Skin: Normal temperature, turgor, and texture; no rash, ulcers, or subcutaneous nodules appreciated. Neurological: Cranial nerves grossly intact. Psychiatric: Normal mood and affect. Alert and oriented to person, place, and time. Objective Labs Result Diagrams: 08/26/18 07:05 08/27/18 05:08 Labs: Laboratory Results - last 24 hr 08/27/18 08/27/18 05:08 05:08 Sodium 130 L Potassium 3.0 L Chloride 98 Carbon Dioxide 25 BUN 10 Creatinine 0.70 Estimated GFR > 60.0 BUN/Creatinine Ratio 14.3 Glucose 90 Calcium 7.2 L Lipase 291 Assessment & Plan Assessment & Plan narrative: Deepak Quintanilla is a 62-year-old male with a past medical history significant for hypertension, ITZEL, small hiatal hernia, diverticulosis, left renal cyst who presented to the ED with complaints of epigastric pain with associated nausea and vomiting admitted for acute alcoholic pancreatitis. 1. Acute hypoxic respiratory failure, not present on admission. Resolving. -Patient likely has COPD due to remote history of smoking. -May use supplemental oxygen to keep oxygen saturation 88% or greater. -Continue to treat aspiration pneumonia as below. 2. Probable aspiration pneumonia, present on admission. Active. -Chest x-ray shows bibasilar infiltrate suspicious for aspiration pneumonia. -Continue Zosyn 3.375 g every 8 hours for now. 3. Chronic Alcoholism now with acute alcohol withdrawal, present on admission. Active. -Patient denies history of alcohol withdrawal, alcohol withdrawal seizures or DT's. -Continue CIWA protocol. 4. Acute alcoholic pancreatitis, present on admission. Acute portion resolved. -Patient presented with epigastric discomfort with [place] [address]. No SIRS or indications for sepsis. No associated respiratory, cardiovascular, or renal failure. -Patient with history of moderate alcohol use with several beers and mixed drinks per day. Of note, he has reported several different frequencies and amounts of alcohol to different providers. -CT chest abdomen and pelvis demonstrated gallbladder WNL; biliary system non- dilated; pancreas enhances normally; inflammatory changes and free fluid adjacent to the pancreas compatible w/ acute pancreatitis; no pancreatic pseudocyst. -U/S of Abdomen revealed adherent stone vs polyp in the gallbladder. Complex left renal focus. LUQ fluid of uncertain etiology. Pancreas is not well visualized, taking into account CT findings, is suspected to be r/t pancreatitis. -MRCP did not demonstrate any cholelithiasis or choledocholithiasis. -Continue fluid resuscitation with normal saline at 100 mL/hr. -Strict I/O monitoring. -Pain control with IV Dilaudid 1 mg every 3 hr as needed for severe pain and Zofran as needed for nausea.. -Will slowly advance diet as tolerated today with clears initially. -Monitor for complications abdominal compartment syndrome, bowel infarction and or perforation, peripancreatic vascular complications, infection, etc. -Recommend abstaining from alcohol indefinitely. 5. Possible acute Ileus, complication of acute pancreatitis, present on admission. Resolved. -No abdominal distention. No emesis. Patient reports having normal bowel movements up to admission. -NPO for bowel rest and will advance diet slowly as tolerated as above. -MRCP did not demonstrate ileus or partial small-bowel obstruction and fluid in the paracolic gutter, therefore, likely just inflammatory changes secondary to acute pancreatitis versus true ileus/SBO. 6. Acute hypovolemia, present on admission. Resolved. -2/2 GI losses and hypermetabolic state. -Continue IV fluid resuscitation as above. 7. Acute hypokalemia, present on admission. Active. -Significant hypokalemia with initial potassium level 2.2 possibly reflective of beer potomania? Received potassium chloride 40 mEq IV x1 and now receiving 80 mEq x 1 today. Will continue to replete as needed. -Continue to monitor closely on telemetry. 8. Essential hypertension, chronic condition, controlled with once daily ARB, currently normotensive -Monitor and trend BP. -Restarted losartan 12.5 mg daily. Disposition: Likely to discharge in several days once pancreatitis has resolved and he is tolerating advancement of diet.
[2018-08-27] MEDS: LOSARTAN 25 MG TABLET 12.5 MG PO (17:44)
[2018-08-28] VITALS (17 sets, daily range): BP systolic 123–154; BP diastolic 86–111; PULSE 92–105; RESP 16–28; TEMP 36.3–36.9; O2SAT 94–99
[2018-08-28] MEDS: PIPERACILLIN-TAZO 3.375 GM/50 ML FROZ.PIGGY IV ×3 (02:30→18:32)
[2018-08-28] MEDS: HYDROMORPHONE 1 MG INJ IV (03:00)
[2018-08-28] MEDS: ALBUTEROL/IPRATROPIUM 3 ML AMPUL INH ×4 (03:10→23:59)
--- NOTE | 2018-08-28 04:34 | PC.NURSE ---
Addendum entered by Josselin Rosales R.N. 08/28/18 06:37: KCL was 2.7 this am, reported to [facility] Original Note: Noc Note: pt reporting pain -02/09, prn oxycodone given x2 so far this shift. Pt pulled out IV in left wrist during repositioning in bed, new IV started in RUE, 1 attempt and tolerated well. Urine remains dark tea colored. No BM this shift, last BM was 08/21, bowel medication have been started.
[2018-08-28 05:55] LABS: Alanine Aminotransferase 72 IU/L (21-72); Albumin 2.2 g/dL (3.5-5.0); Albumin Globulin Ratio 0.8 (1.0-2.8); Alkaline Phosphatase 68 U/L (38-126); Aspartate Aminotransferase 45 IU/L (17-59); BUN Creatinine Ratio 16.7 (6-22); Bilirubin Total 1.5 mg/dL (0.2-1.3); Blood Urea Nitrogen 10 mg/dL (9-20); Calcium 7.5 mg/dL (8.4-10.2); Carbon Dioxide 24 mmol/L (22-32); Chloride 99 mmol/L (98-107); Estimated Glomerular Filt Rate > 60.0 mL/min (>60); Globulin 2.6 g/dL (1.7-4.1); Glucose 88 mg/dL (80-110); HEMOLYSIS < 15 (0-50); Magnesium 1.6 mg/dL (1.6-2.3); Sodium 130 mmol/L (137-145); Total Protein 4.8 g/dL (6.3-8.2)
[2018-08-28 05:58] LABS: Hematocrit 28.3 % (41-53); Hemoglobin 10.1 g/dL (13.5-17.5); Mean Corpuscular HGB Conc 35.5 % (30-36); Mean Corpuscular Hemoglobin 35.2 PG (26-34); Platelet Count 265 X10^3/uL (150-400); Red Blood Cell Count 2.86 X10^6/uL (4.5-5.9); Red Cell Distribution Width 15.1 % (11.6-14.8); White Blood Cell Count 9.6 X10^3/uL (4.5-11.0)
[2018-08-28 06:01] LABS: Add Manual Diff / Slide Review YES
[2018-08-28 06:12] LABS: Neutrophils Absolute Manual 8064 /uL (3000-5900); Total Cells Counted 100
[2018-08-28 06:13] LABS: Anisocytosis 1+
[2018-08-28 06:14] LABS: Procalcitonin 0.73 ng/mL (<0.5)
[2018-08-28 06:16] LABS: Potassium 2.7 mmol/L (3.4-5.1)
--- NOTE | 2018-08-28 07:33 | P.PN_ITS ---
Subjective Date Patient Seen: 08/28/18 Interval history: Deepak Quintanilla is a 62-year-old male with a past medical history significant for hypertension, ITZEL, small hiatal hernia, diverticulosis, left renal cyst who presented to the ED with complaints of epigastric pain with associated nausea and vomiting admitted for acute alcoholic pancreatitis. The patient is resting in bed comfortably. He continues to have potassium wasting and denies profuse diarrhea. His mid abdominal pain continues to im prove. He is slightly tremulous and anxious. He continues to tolerate advancement of his diet now to regular/soft diet. He denies formication, hallucinations, paranoid ideations, headache, or any other signs of alcohol withdrawal. He has never had DTs or alcohol withdrawal seizures. His last CIWA score was 4. He denies headache, shortness of breath, chest pain, nausea, vomiting, fever, chills, dysuria, diarrhea or constipation. He is voiding and eliminating without difficulty. He is up ambulating minimally due to pain without assistance. Exam Vital Signs (past 8 hours): - 08/28/18 03:00 08/28/18 03:10 08/28/18 03:45 Temperature 98.4 F Pulse Rate 104 H 101 H 101 H Respiratory Rate 16 20 Blood Pressure 151/101 H 126/90 Pulse Oximetry 97 96 Fraction of Inspired Oxygen 24 Oxygen Delivery Method Nasal Cannula Oxygen Flow Rate 2 Narrative Exam Narrative: General: Older gentleman sitting in bed appears comfortable but slightly anxious, in no acute distress, appears older than stated age, well-developed, well-nourished, appropriately interactive. HEENT: Normocephalic, atraumatic. External ears without defect. Pupils equal, round, and reactive to light. Anicteric sclerae, moist conjunctivae, and no lid lag. Neck: Supple with full range of motion. No lymphadenopathy or thyromegaly. Cardiovascular: Regular rate and rhythm without murmurs, rubs, or gallops appreciated Pulmonary: Clear to auscultation bilaterally without crackles, wheezes, or rhonchi. Normal respiratory effort with no use of accessory muscles. Abdomen: Soft, bowel sounds present, no significant tenderness to palpation, nondistended. No hepatosplenomegaly or masses appreciated. Extremities: No clubbing, cyanosis, or edema. Large vertical scars on knees bilaterally. Skin: Normal temperature, turgor, and texture; no rash, ulcers, or subcutaneous nodules appreciated. Objective Labs Result Diagrams: 08/28/18 05:12 08/28/18 05:12 Labs: Laboratory Results - last 24 hr 08/28/18 08/28/18 08/28/18 05:12 05:12 05:12 WBC 9.6 D RBC 2.86 L Hgb 10.1 L Hct 28.3 L MCV 99.0 MCH 35.2 H MCHC 35.5 RDW 15.1 H Plt Count 265 Neut % (Auto) Not Reportable Lymph % (Auto) Not Reportable [place] % (Auto) Not Reportable Eos % (Auto) Not Reportable Baso % (Auto) Not Reportable Lymph # (Auto) Not Reportable [place] # (Auto) Not Reportable Baso # (Auto) Not Reportable Total Counted 100 Seg Neutrophils % 73.0 H Band Neutrophils % 11.0 H Lymphocytes % (Manual) 10.0 L Monocytes % (Manual) 5.0 Metamyelocytes % 1.0 H Neutrophils # (Manual) 8064 H RBC Morphology See below Anisocytosis 1+ H Sodium 130 L Potassium 2.7 L* Chloride 99 Carbon Dioxide 24 BUN 10 Creatinine 0.60 L Estimated GFR > 60.0 BUN/Creatinine Ratio 16.7 Glucose 88 Calcium 7.5 L Magnesium 1.6 Total Bilirubin 1.5 H AST 45 ALT 72 Alkaline Phosphatase 68 Total Protein 4.8 L Albumin 2.2 L Globulin 2.6 Albumin/Globulin Ratio 0.8 L Procalcitonin 0.73 H Assessment & Plan Assessment & Plan narrative: Deepak Quintanilla is a 62-year-old male with a past medical history significant for hypertension, ITZEL, small hiatal hernia, diverticulosis, left renal cyst who presented to the ED with complaints of epigastric pain with associated nausea and vomiting admitted for acute alcoholic pancreatitis. 1. Acute hypoxemic respiratory failure, not present on admission. Resolving. -Patient likely has COPD due to remote history of smoking with possible aspiration pneumonia and appears to have slight fluid overload due to fluid resuscitation for acute pancreatitis. Ordered spironolactone 50 mg x1 for diuressis with potassium-sparing effect. -May use supplemental oxygen to keep oxygen saturation 88% or greater. -Continue to treat aspiration pneumonia as below. 2. Probable aspiration pneumonia, present on admission. Active. -Chest x-ray shows bibasilar infiltrate suspicious for aspiration pneumonia. -Continue Zosyn 3.375 g every 8 hours for now. May consider switching closer to discharge if he hasnt already completed a full course of antibiotics. -Initial procalcitonin 0.64. Trending up but can be falsely elevated with liver disease. Continue to monitor clinically. -Ordered speech therapy evaluation and treatment, pending. 3. Chronic alcoholism now with acute alcohol withdrawal, present on admission. Active. -Patient denies history of alcohol withdrawal, alcohol withdrawal seizures or DT's. Patient drinks several beers and mixed vodka drinks per day for which he reports differently to different providers. -Continue CIWA protocol with multivitamin, folic acid, thiamine, and as needed Ativan and Haldol. Last CIWA score 4. 4. Acute alcoholic pancreatitis, present on admission. Acute portion resolved. -Patient presented with epigastric discomfort with [place] [address]. No SIRS or indications for sepsis. No associated respiratory, cardiovascular, or renal failure. -Patient with history of moderate alcohol use with several beers and mixed drinks per day. Of note, he has reported several different frequencies and amou nts of alcohol to different providers. -CT chest abdomen and pelvis demonstrated gallbladder WNL; biliary system non- dilated; pancreas enhances normally; inflammatory changes and free fluid adjacent to the pancreas compatible w/ acute pancreatitis; no pancreatic pseudocyst. -U/S of Abdomen revealed adherent stone vs polyp in the gallbladder. Complex left renal focus. LUQ fluid of uncertain etiology. Pancreas is not well visualized, taking into account CT findings, is suspected to be r/t panc reatitis. -MRCP did not demonstrate any cholelithiasis or choledocholithiasis. -Continue fluid resuscitation with normal saline at 100 mL/hr. -Strict I/O monitoring. -Pain control hydrocodone 5 mg every 6 hr as needed for moderate to severe pain and Zofran as needed for nausea. Stopped dilaudid. -Continue soft and bland diet. -Recommend abstaining from alcohol indefinitely. 5. Acute hypokalemia, present on admission. Active and ongoing. -Significant hypokalemia with initial potassium level 2.2 possibly reflective of beer potomania? Continues to need significant repletion on a daily basis. Started patient on potassium chloride 40 mg twice daily with meals and IV potassium chloride 40 mEq x1 today. -Continue to monitor closely on telemetry. 6. Possible acute Ileus, complication of acute pancreatitis, present on admission. Resolved. -No abdominal distention. No emesis. Patient reports having normal bowel movements. -Continue soft and bland diet. -MRCP did not demonstrate ileus or partial small-bowel obstruction and fluid in the paracolic gutter, therefore, likely just inflammatory changes secondary to acute pancreatitis versus true ileus/SBO. 7. Acute hypovolemia, present on admission. Resolved. -2/2 GI losses and hypermetabolic state. -Continue IV fluid until adequately fluid resuscitated. 8. Essential hypertension, chronic condition, controlled with once daily ARB, currently normotensive -Monitor and trend BP. -Continue losartan 12.5 mg daily. 9. Severe hepatosteatosis, present on admission. Stable. -Likely secondary to chronic alcohol consumption. -CT abdomen and pelvis demonstrated severe steatohepatosis of liver. Recommend to be worked up outpatient. Disposition: Likely to discharge in 1-2 days once potassium level and PO intake have improved and he is out of acute alcohol withdraw.
[2018-08-28] MEDS: SODIUM CHLORIDE 0.9% 250 ML 21 ML IV (08:32)
[2018-08-28] MEDS: POTASSIUM CHLORIDE 40 MEQ in SODIUM CHLORIDE 0.9% 500 ML 130 ML IV (08:33)
[2018-08-28] MEDS: SODIUM CHLORIDE 0.9% FLUSH 10 ML IV ×2 (08:34→21:21)
[2018-08-28] MEDS: POTASSIUM CHLORIDE 20 MEQ TAB 40 MEQ PO ×2 (08:41→18:28)
[2018-08-28] MEDS: LOSARTAN 25 MG TABLET 12.5 MG PO (08:41)
[2018-08-28] MEDS: HYDROCODONE/ACET 5/325 TABLET 1 TAB PO ×3 (08:42→22:28)
[2018-08-28] MEDS: HEPARIN 5,000 UNIT/ML VIAL 5000 UNIT SUBCUT (10:47)
--- NOTE | 2018-08-28 11:23 | PC.NURSE ---
Addendum entered by Kira Edmonds R.N. 08/28/18 12:26: Update rec'd by Dr. Pena around 1200. Made aware of fine crackles to lung bases bilaterally, feeling of SOB. O2 sat 95-98% on 1L NC, O2 NC removed again, will monitor. Pt ambulating in halls with 1PA suing gait belt and walker. Original Note: Day Shift- Pt A&OX4, forgetful at times, able to follow directions and make needs known. Flat affect. High fall risk precautions in place, bed alarm on. Goal is OOB with 1PA ambulation in halls. Rates 4/10 pain to upper abd, prn [place] 1 tab given at 0845 with good effect. Denies nausea. Tolerating small amounts of meals. Potassium Chloride 40meq infusion started at 0835 for lab value K+ of 2.7. Infusion paused in order to given intermittent antibiotic, then restarted. Potassium Chloride 40meq po started BID. CIWA score 1/10, slight tremor. Will monitor.
[2018-08-28] MEDS: MAGNESIUM SULFATE 4 GM/100 ML PIGGYBACK IV (13:25)
[2018-08-28] MEDS: SPIRONOLACTONE 50 MG TABLET PO (15:03)
--- NOTE | 2018-08-28 16:40 | ST.IPIE ---
Care Team Visit Care Team Role Provider Type Melinda Olivo MD Other Providers Physician Specialty: General Surgery Address: [address] [place] [address], [id number] Email: [email or web address] Christian DO Emergency Provider Physician Specialty: Emergency Medicine Address: [address] [place] [address], [facility] Email: RADHA Mcfadden Admit Provider Advanced Handle Maker Attending Provider Specialty: Internal Medicine Address: [address] [place] [address], [facility] Email: Current Diagnoses Alcohol induced acute pancreatitis without necrosis or infection (08/22/18) Past Medical History (Last Reviewed 08/23/18 @ 14:20 by Melinda Olivo MD) Foot fracture, right (Acute Medical) partial recontructive surgery Hypertension (Acute Medical) ST IP Initial Evaulation Report VICE PRESIDENT OF OPERATIONS Clinical Swallow Evaluation Start: 08/28/18 16:13 Freq: Status: Active Protocol: Document 08/28/18 16:14 JASMIN (Rec: 08/28/18 16:40 JASMIN [id number]) Clinical Swallow Evaluation Session Time Visit Start Time 15:45 Visit Stop Time 16:13 Total Visit Minutes [address] Pena Reason for Referral Probable Aspiration Pneumonia Setting Assessment Location Acute Care Visit Type Note Type Initial Evaluation Patient Information Identification Type Name ID Card History 62-year-old male with a past medical history significant for hypertension, ITZEL, small hiatal hernia, diverticulosis, left renal cyst who presented to the ED with complaints of epigastric pain with associated nausea and vomiting admitted for acute alcoholic pancreatitis. Subjective Observations Pt was awake lying in bed and watching TV. He greeted the clinician and was agreeable to swallow evaluation. He denied swallow difficulties or changes in speech, expressive/ receptive communication, and cognitive skills. He has full upper dentures that were not in place but were found in his belongings and put in place. Evaluation Liquids Trialed Thin Solids Trialed Puree Dysphagia Mechanical Mechanical Soft Regular Administration Type Straw Self-Feeding Oral Impairment WFL Oral Strategies Upright at 90 degrees Oral Phase Comments Oral Mechanical Exam: Missing several lower molars bilaterally, full upper dentures that fit well. Mild ankyloglossia characterized by tongue tip tethered by lingual frenulum; does not appear to interfere with speech intelligibility or oral prep or swallow phase. All other structures WNL. Soft palate elevates upon phonation . Hyolaryngeal elevation and excursion strong with good ROM per palpation. Oral Phase: WFL. Mildly extensive mastication, which is appropriate per dentition and for esophageal clearance through hiatal hernia. No abnormal oral residue post swallow. Pharyngeal Impairment WNL Pharyngeal Phase Comments No overt s/sx of aspiration with trials of thin liquid via straw in single and consecutive sips, applesauce, diced fruit, basilio cracker and dry turkey sandwich. Pt maintained clear vocal quality . Occasional mild cough present throughout evaluation both before and during oral trials, appear to be related to pulmonary status as opposed to dysphagia. Pt did exhibit mild SOB/shallow breathing throughout the evaluation and maintained O2 sats between 93- 100% on RA during oral trials, primarily in 94-97% range. Findings Dysphagia Type No evidence of dysphagia. Impressions Pt presents with normal swallow function. Speech intelligibility was 100%. Pt was oriented x4 and participated appropriately in conversation with no evidence of expressive/receptive deficits. CM was present briefly during evaluation. Pt correctly named family members /relationships and recalled that his uncle had visited him today. He was able to provide history of events that led him to this hospital stay. Diet Recommendations Liquids Order Thin Diet Order Regular Medication Recommendations As Tolerated Aspiration Precautions Recommended Precautions Upright at 90 Degrees Small Bites/Sips Treatment Plan Placement Recommendations after Home Discharge Appropriate for Therapy No: Evaluation only. Pt will be dc'd from [facility].
[2018-08-28 17:16] LABS: Potassium Urine Random 30.3 mmol/L
[2018-08-29] VITALS (10 sets, daily range): BP systolic 95–131; BP diastolic 76–98; PULSE 93–106; RESP 16–20; TEMP 36.4–37.2; O2SAT 94–98; BMI 25.0
[2018-08-29] MEDS: SODIUM CHLORIDE 0.9% 250 ML 21 ML IV ×2 (02:15→10:37)
[2018-08-29] MEDS: PIPERACILLIN-TAZO 3.375 GM/50 ML FROZ.PIGGY IV ×3 (02:15→18:06)
[2018-08-29] MEDS: ALBUTEROL/IPRATROPIUM 3 ML AMPUL INH ×2 (05:26→11:15)
[2018-08-29] MEDS: HYDROCODONE/ACET 5/325 TABLET 1 TAB PO ×2 (05:54→12:25)
--- NOTE | 2018-08-29 05:55 | PC.NURSE ---
Shortness of Breath/Wheezing: at 5:20 this shift patient complaining of shortness of breath, asking for oxygen or a breathing treatment. Patient O2 sats 95% room air at this time. Patient's lungs auscultated and expiratory wheezes heard throughout lung flores. RT on floor at this time and called to bedside for albuterol breathing treatment. Patient reports feeling a bit better at this time(05:58). Will continue to monitor.
[2018-08-29 07:30] LABS: Ionized Calcium 4.1 mg/dL (4.8-5.6)
--- NOTE | 2018-08-29 08:05 | PC.NURSE ---
Late entry-CIWA assessment from 08/28/18 at 1410 entered today.
[2018-08-29 09:08] LABS: Add Manual Diff / Slide Review NO; Basophils Absolute Auto 0 /uL (0-100); Basophils Percent Auto 0.4 % (0-2); Eosinophils Absolute Auto 100 /uL (0-450); Eosinophils Percent Auto 0.8 % (2-4); Hematocrit 29.8 % (41-53); Hemoglobin 10.2 g/dL (13.5-17.5); Lymphocytes Absolute Auto 800 /uL (1100-4500); Lymphocytes Percent Auto 6.8 % (25-40); Mean Corpuscular HGB Conc 34.3 % (30-36); Mean Corpuscular Hemoglobin 34.4 PG (26-34); Mean Corpuscular Volume 100.3 fL (80-100); Monocytes Absolute Auto 1100 /uL (0-900); Monocytes Percent Auto 9.5 % (3-14); Neutrophils Absolute Auto 10000 /uL (1500-7000); Neutrophils Percent Auto 82.5 % (50-75); Platelet Count 342 X10^3/uL (150-400); Red Blood Cell Count 2.97 X10^6/uL (4.5-5.9); Red Cell Distribution Width 15.4 % (11.6-14.8); White Blood Cell Count 12.1 X10^3/uL (4.5-11.0)
[2018-08-29 10:15] LABS: BUN Creatinine Ratio 11.7 (6-22); Blood Urea Nitrogen 7 mg/dL (9-20); Calcium 7.8 mg/dL (8.4-10.2); Carbon Dioxide 24 mmol/L (22-32); Chloride 99 mmol/L (98-107); Estimated Glomerular Filt Rate > 60.0 mL/min (>60); Glucose 76 mg/dL (80-110); HEMOLYSIS 22 (0-50); Potassium 3.2 mmol/L (3.4-5.1); Sodium 130 mmol/L (137-145)
[2018-08-29] MEDS: SODIUM CHLORIDE 0.9% FLUSH 10 ML IV ×3 (10:37→18:16)
[2018-08-29] MEDS: LOSARTAN 25 MG TABLET 12.5 MG PO (10:38)
[2018-08-29] MEDS: POTASSIUM CHLORIDE 20 MEQ TAB 40 MEQ PO ×2 (10:39→18:26)
--- NOTE | 2018-08-29 12:11 | PC.NURSE ---
Addendum entered by Kira Edmonds R.N. 08/29/18 13:51: Pt c/o heartburn, spoke with Dr. Mcginnis at 1350, new order rec'd for protonix. Also made Dr. Mcginnis aware of lab value K+ 3.2 this AM. Order for X1 dose of Potassium po rec'd. Original Note: Day Shift- Pt oriented X4, flat affect, cooperative with care. Does need reminders to use incentive spirometer. Explained importance of use as pt is getting to volume of 750. Pt reported that a few days ago he was at 1500. Discouraged with continuing to have upper right abd pain 3-4/10, plan for prn [place]. CIWA score 1 at 0945. Pt encouraged to be OOB for meals and ambulate in halls with help. Pt OOB for breakfast and ambulated around the [facility] before lunch. Tolerated walking fair using gait belt and walker.
[2018-08-29] MEDS: PANTOPRAZOLE 20 MG TABLET PO (14:37)
[2018-08-29] MEDS: POTASSIUM CHLORIDE 20 MEQ TAB PO (16:00)
--- NOTE | 2018-08-29 16:21 | P.PN_ITS ---
Subjective Date Patient Seen: 08/29/18 Time Patient Seen: 16:10 Interval history: Follow up on alcoholic pancreatitis and electrolytes imbalance Patient seen at bedside. He is doing well. No acute overnight events. Denies any pain, shortness of breath, nausea, vomiting, diarrhea at this time. He is tolerating diet well. He is alert and orient, in no acute agitation or alcohol withdrawal. Exam Vital Signs (past 8 hours): - 08/29/18 09:10 08/29/18 11:33 08/29/18 13:00 Temperature 99 F 98 F Pulse Rate 99 H 100 H 102 H Respiratory Rate 18 16 20 Blood Pressure 112/82 131/98 H Pulse Oximetry 96 94 98 08/29/18 15:59 Temperature Pulse Rate 106 H Respiratory Rate 16 Blood Pressure 124/92 H Pulse Oximetry 94 Fraction of Inspired Oxygen 21 Oxygen Delivery Method Room Air Oxygen Flow Rate 0 Narrative Exam Narrative: General: No acute distress, AAO x3. HEENT: Normocephalic, atraumatic. EOMI bilaterally, PERRLA bilaterally. Neck: Supple with full range of motion. Cardiovascular: Regular rate and rhythm without murmurs, rubs, or gallops appreciated Pulmonary: Clear to auscultation bilaterally without crackles, wheezes, or rhonchi. Normal respiratory effort with no use of accessory muscles. Abdomen: Soft, bowel sounds present, no significant tenderness to palpation, nondistended. No organomegaly. Extremities: No clubbing, cyanosis, or edema. Large vertical scars on knees bilaterally. Skin: Normal temperature, turgor, and texture; no rash, ulcers, or subcutaneous nodules appreciated Neuro: NO focal defecits Psych: Mood is appropriate, calm. Objective Labs Result Diagrams: 08/29/18 08:23 08/29/18 08:23 Labs: Laboratory Results - last 24 hr 08/25/18 08/28/18 08/29/18 06:24 16:30 08:23 WBC 12.1 H RBC 2.97 L Hgb 10.2 L Hct 29.8 L MCV 100.3 H MCH 34.4 H MCHC 34.3 RDW 15.4 H Plt Count 342 Neut % (Auto) 82.5 H Lymph % (Auto) 6.8 L [place] % (Auto) 9.5 Eos % (Auto) 0.8 L Baso % (Auto) 0.4 Neut # (Auto) 98668 H Lymph # (Auto) 800 L [place] # (Auto) 1100 H Eos # (Auto) 100 Baso # (Auto) 0 Sodium Potassium Chloride Carbon Dioxide BUN Creatinine Estimated GFR BUN/Creatinine Ratio Glucose Calcium Ionized Calcium Maryann 4.1 L Procalcitonin Ur Random Potassium 30.3 08/29/18 08/29/18 08:23 08:23 WBC RBC Hgb Hct MCV MCH MCHC RDW Plt Count Neut % (Auto) Lymph % (Auto) [place] % (Auto) Eos % (Auto) Baso % (Auto) Neut # (Auto) Lymph # (Auto) [place] # (Auto) Eos # (Auto) Baso # (Auto) Sodium 130 L Potassium 3.2 L Chloride 99 Carbon Dioxide 24 BUN 7 L Creatinine 0.60 L Estimated GFR > 60.0 BUN/Creatinine Ratio 11.7 Glucose 76 L Calcium 7.8 L Ionized Calcium Maryann Procalcitonin 0.60 H Ur Random Potassium Assessment & Plan Assessment & Plan narrative: 62yo M with PMH of hypertension, ITZEL, small hiatal hernia, diverticulosis, left renal cyst who presented to the ED with complaints of epigastric pain with associated nausea and vomiting admitted for acute alcoholic pancreatitis. 1. Acute hypoxemic respiratory failure -Resolving, likely dlue to aspiration PNA -May use supplemental oxygen to keep oxygen saturation 88% or greater. -Continue to treat aspiration pneumonia as below. 2. Probable aspiration pneumonia -Chest x-ray shows bibasilar infiltrate suspicious for aspiration pneumonia. -Procalc downtrended to .60. -Continue Zosyn 3.375 g every 8 hours for now. Will likely switch to PO in the morning. -Ordered speech therapy evaluation and treatment, pending. 3. Chronic alcoholism now with acute alcohol withdrawal -Improving, CIWA is 0-2 -Continue CIWA protocol and Ativan PRN 4. Acute alcoholic pancreatitis -Resolved -CT chest abdomen and pelvis demonstrated gallbladder WNL; biliary system non- dilated; pancreas enhances normally; inflammatory changes and free fluid adjacent to the pancreas compatible w/ acute pancreatitis; no pancreatic pseudocyst. -U/S of Abdomen revealed adherent stone vs polyp in the gallbladder. Complex left renal focus. LUQ fluid of uncertain etiology. Pancreas is not well visualized, taking into account CT findings, is suspected to be r/t pancreatitis. -MRCP did not demonstrate any cholelithiasis or choledocholithiasis. -Continue Diet as tolerated, soft -Continue fluid resuscitation with normal saline at 100 mL/hr. -Strict I/O monitoring. -Pain control hydrocodone 5 mg every 6 hr as needed for moderate to severe pain and Zofran as needed for nausea. 5. Acute hypokalemia -Improving -K 3.2 this morning -Continue to replete K and monitor closely on telemetry. 6. Possible acute Ileus -Resolved. 7. Acute hypovolemia -Resolved, likley due to GI losses and hypermetabolic state. -Continue IV fluid until adequately fluid resuscitated. 8. Essential hypertension -BP stable -Continue losartan 12.5 mg daily. -Monitor and trend BP. 9. Severe hepatosteatosis -Likely secondary to chronic alcohol consumption. -CT abdomen and pelvis demonstrated severe steatohepatosis of liver. Recommend to be worked up outpatient. Disposition: Possible discharge within 1-2 days. Patient is improving and electrolytes are normalizing.
--- NOTE | 2018-08-29 17:20 | CM.DPC ---
DCP/continued: Reviewed chart. Met with patient today to discuss d/c plan. Patient reports that he plans to return home to [facility] when medically stable. D/C date unknown at this time. Patient reports that he has been up ambulating in the halls. Patient hopes to get FWW prior to discharge. PT evaluation ordered for d/c recommendations. Patient provided SENIOR CLINICAL CONSULTANT permission to call his sister/Rosita Sharp at [phone]. Unfortunately, this SENIOR CLINICAL CONSULTANT ran out of time today. P: Anticipate home when stable. Will request that SENIOR CLINICAL CONSULTANT f/u with therapy recommendations and family on 08-30-18. ERNIE Horvath
--- NOTE | 2018-08-29 23:45 | PC.NURSE ---
Evening Shift Pt sister called today to check on pt. She gave name and number if Uncle that will be providing transportation home, Bj Elder- [phone]. Was concerned about pt being d/c home too soon, and asked about potential SNF placement if pt not able to care for himself due to illness. I told her that these were good questions and I would let the d/c workforce planner know of her concerns. Pt was A&Ox4 and able to make needs known, did not wish to get up and ambulate in the halls this evening and reported poor appetite.
[2018-08-30] VITALS (7 sets, daily range): BP systolic 100–115; BP diastolic 74–90; PULSE 99–108; RESP 16–30; TEMP 36.6–37.1; O2SAT 93–99
--- NOTE | 2018-08-30 | DI.CT.S_ITS ---
PROCEDURE: CT ABDOMEN PELVIS W CON INDICATIONS: rule out progression of acute pancreatitis TECHNIQUE: After the administration of oral and intravenous contrast, 5 mm thick sections acquired from the diaphragms to the symphysis. 5 mm thick coronal and sagittal reformats were performed. For radiation dose reduction, the following was used: automated exposure control, adjustment of mA and/or kV according to patient size. COMPARISON: [facility], CT, CT ABDOMEN PELVIS W CON, 08/22/2018, 14:37. FINDINGS: Image quality: Excellent. ABDOMEN: Lung bases: Small bilateral pleural effusions are present. Moderate dependent bibasilar atelectasis versus pneumonia is present. Heart size is enlarged. There is a small pericardial effusion. Solid organs: Liver is normal in size and enhancement. Gallbladder is within normal limits. Biliary system is non-dilated. There is normal pancreatic enhancement without evidence of necrosis. There is a multiloculated peripheral enhancing peripancreatic fluid collection located predominantly anterior to the pancreas, measuring roughly 19 cm transverse by 4 cm anteroposterior. Spleen is normal in size and enhancement. No adrenal nodules. Kidneys are normal in size and enhancement, without hydronephrosis. Peritoneum and bowel: Stomach, small bowel, and colon loops are normal in caliber and wall thickness. No pneumoperitoneum. Small amount of bilateral paracolic gutter fluid. There is a small amount of free fluid in the pelvis. There is an infrapancreatic mesenteric fluid collection with peripheral enhancement measuring roughly 21 cm transverse by 8 cm anteroposterior. Nodes and vessels: No retroperitoneal or mesenteric adenopathy. Aorta and inferior vena cava are normal in caliber. Miscellaneous: No ventral hernias. PELVIS: Genitourinary: Bladder wall thickness is normal. Miscellaneous: No inguinal hernias or adenopathy. Bones: No suspicious bony lesions. Bilateral L5-S1 pars interarticularis defects. No vertebral body compression fractures. IMPRESSION: 1. Peripancreatic and infrapancreatic fluid collections, consistent with pancreatitis sequelae, possibly infectious. 2. No evidence of pancreatic necrosis. 3. No biliary ductal dilatation. 4. Bibasilar atelectasis versus pneumonia with small bilateral pleural effusions. 5. Small pericardial effusion. 6. Bilateral L5-S1 pars interarticularis defects. Dictated by: Joseph Ballesteros M.D. on 08/30/2018 at 12:11 Approved by: Joseph Ballesteros M.D. on 08/30/2018 at 12:16
[2018-08-30] MEDS: PIPERACILLIN-TAZO 3.375 GM/50 ML FROZ.PIGGY IV ×3 (01:59→17:28)
[2018-08-30] MEDS: PANTOPRAZOLE 20 MG TABLET PO (06:01)
[2018-08-30 08:46] LABS: Basophils Absolute Auto 100 /uL (0-100); Eosinophils Absolute Auto 100 /uL (0-450); Eosinophils Percent Auto 0.5 % (2-4); Hemoglobin 11.8 g/dL (13.5-17.5); Lymphocytes Absolute Auto 1300 /uL (1100-4500)
[2018-08-30 08:55] LABS: Add Manual Diff / Slide Review NO; Basophils Percent Auto 0.7 % (0-2); Hematocrit 34.1 % (41-53); Lymphocytes Percent Auto 7.3 % (25-40); Mean Corpuscular HGB Conc 34.5 % (30-36); Mean Corpuscular Hemoglobin 34.4 PG (26-34); Mean Corpuscular Volume 99.9 fL (80-100); Monocytes Absolute Auto 1200 /uL (0-900); Monocytes Percent Auto 6.6 % (3-14); Neutrophils Absolute Auto 15200 /uL (1500-7000); Neutrophils Percent Auto 84.9 % (50-75); Platelet Count 424 X10^3/uL (150-400); Red Blood Cell Count 3.42 X10^6/uL (4.5-5.9); Red Cell Distribution Width 15.2 % (11.6-14.8); White Blood Cell Count 17.9 X10^3/uL (4.5-11.0)
[2018-08-30 08:57] LABS: BUN Creatinine Ratio 13.3 (6-22); Blood Urea Nitrogen 8 mg/dL (9-20); Calcium 8.2 mg/dL (8.4-10.2); Carbon Dioxide 21 mmol/L (22-32); Chloride 102 mmol/L (98-107); Estimated Glomerular Filt Rate > 60.0 mL/min (>60); Glucose 81 mg/dL (80-110); HEMOLYSIS < 15 (0-50); Potassium 3.5 mmol/L (3.4-5.1); Sodium 131 mmol/L (137-145)
[2018-08-30] MEDS: POTASSIUM CHLORIDE 20 MEQ TAB 40 MEQ PO (09:13)
[2018-08-30] MEDS: LOSARTAN 25 MG TABLET 12.5 MG PO (09:14)
[2018-08-30] MEDS: SODIUM CHLORIDE 0.9% FLUSH 10 ML IV ×2 (09:15→21:09)
[2018-08-30] MEDS: ALBUTEROL/IPRATROPIUM 3 ML AMPUL INH ×2 (10:13→16:05)
[2018-08-30] MEDS: SODIUM CHLORIDE 0.9% 500 ML 1000 ML IV (10:36)
--- NOTE | 2018-08-30 11:23 | PC.NURSE ---
Deepak continues to complain periodically of feeling short of breath and asking for O2 to be placed. Per RT and nurse check his O2 sat is 100% on RA. Noted to have elevated heart rate at rest, 116 BPM. EKG obtained which shows sinus tach. MD informed. Last BP 102/79. Denies chest pain. Afebrile. WBC is trending up to 17.9, however. Presently pt. is drinking oral contrast for pending CT of abdomen.
--- NOTE | 2018-08-30 12:57 | P.PN_ITS ---
Subjective Date Patient Seen: 08/30/18 Time Patient Seen: 12:49 Interval history: Follow up on alcoholic pancreatitis and electrolytes imbalance Patient seen at bedside. Today patient's pain is worsening in the abdominal region. He denies any fevers or chills, nausea or vomiting, diarrhea or constipation. Patient does have decrease appetite as compared to previous days. Early in the morning patient became tachycardic to 130. EKG was performed which showed sinus tachycardia. Patient was given 500 cc bolus with improvement of heart rate to 108. On review, patient's blood pressure has dropped overnight to 90s/70s and subsequently improved by morning. Exam Vital Signs (past 8 hours): - 08/30/18 05:00 08/30/18 08:34 08/30/18 10:13 Temperature 97.8 F 97.8 F Pulse Rate 103 H 104 H 108 H Respiratory Rate 16 18 22 Blood Pressure 100/78 107/74 Pulse Oximetry 98 99 96 Fraction of Inspired Oxygen 21 Oxygen Delivery Method Room Air Oxygen Flow Rate 0 Narrative Exam Narrative: General: Mild distress due to abdominal discomfort, AAO x3. HEENT: Normocephalic, atraumatic. EOMI bilaterally, PERRLA bilaterally. Neck: Supple with full range of motion. Cardiovascular: Tachycardia. no murmurs, rubs, or gallops appreciated Pulmonary: Clear to auscultation bilaterally with mild crackles at bases BL Abdomen: Soft, bowel sounds present, nondistended. Tenderness to palpation appreciated all throughout abdomen. No organomegaly. Extremities: No clubbing, cyanosis, or edema. Large vertical scars on knees bilaterally. Skin: Normal temperature, turgor, and texture; no rash, ulcers, or subcutaneous nodules appreciated Neuro: No focal defecits Psych: Mood is appropriate, calm. Objective Labs Result Diagrams: 08/30/18 08:26 08/30/18 08:26 Labs: Laboratory Results - last 24 hr 08/30/18 08/30/18 08:26 08:26 WBC 17.9 H RBC 3.42 L Hgb 11.8 L Hct 34.1 L MCV 99.9 MCH 34.4 H MCHC 34.5 RDW 15.2 H Plt Count 424 H Neut % (Auto) 84.9 H Lymph % (Auto) 7.3 L [place] % (Auto) 6.6 Eos % (Auto) 0.5 L Baso % (Auto) 0.7 Neut # (Auto) 19403 H Lymph # (Auto) 1300 [place] # (Auto) 1200 H Eos # (Auto) 100 Baso # (Auto) 100 Sodium 131 L Potassium 3.5 Chloride 102 Carbon Dioxide 21 L BUN 8 L Creatinine 0.60 L Estimated GFR > 60.0 BUN/Creatinine Ratio 13.3 Glucose 81 Calcium 8.2 L Assessment & Plan Assessment & Plan narrative: 62yo M with PMH of hypertension, ITZEL, small hiatal hernia, diverticulosis, left renal cyst who presented to the ED with complaints of epigastric pain with associated nausea and vomiting admitted for acute alcoholic pancreatitis. 1. Acute alcoholic pancreatitis -with possibility of worsening and complications -Initial CT chest abdomen and pelvis demonstrated gallbladder WNL; biliary system non-dilated; pancreas enhances normally; inflammatory changes and free fluid adjacent to the pancreas compatible w/ acute pancreatitis; no pancreatic pseudocyst. -Initial U/S of Abdomen revealed adherent stone vs polyp in the gallbladder. Complex left renal focus. LUQ fluid of uncertain etiology. Pancreas is not well visualized, taking into account CT findings, is suspected to be r/t pancreatitis. -MRCP did not demonstrate any cholelithiasis or choledocholithiasis. -Patient intially improved. His diet was restarted. However today condition is worsening -Patient noted to be hypotensive overnight and tachycardic in the morning. Leukocytosis worsened to 17k -Today's CT abd revealed: Peripancreatic and infrapancreatic fluid collections, consistent with pancreatitis sequelae, possibly infectious. -Will consult surgery for possiblity of drainage -Pain control hydrocodone 5 mg every 6 hr as needed for moderate to severe pain and Zofran as needed for nausea. -Will place patient NPO again and start .9NS @150cc/hr after 500cc bolus is finished -Patient is already on Zosyn for aspiration PNA. continue at this time. Will add on Metronidazole for aerobic coverage. -Will get procalc, lactate, and blood cultures 2. Probable aspiration pneumonia -Chest x-ray shows bibasilar infiltrate suspicious for aspiration pneumonia. -Continue Zosyn 3.375 g every 8 hours for now. 3. Chronic alcoholism now with acute alcohol withdrawal -Resolved -Continue CIWA protocol and Ativan PRN 5. Acute hypokalemia -Resolved 6. Essential hypertension -Episodes of hypotension last night and tachycardia this morning -Will stop losartan due to possibility of developing sepsis and continue IVF 7. Severe hepatosteatosis -Likely secondary to chronic alcohol consumption. -CT abdomen and pelvis demonstrated severe steatohepatosis of liver. Recommend to be worked up outpatient. Disposition: Patient's condition is worsening with possibility of develping sepsis. Will get further work up and consult surgery regarding fluid collections near pancareas
[2018-08-30] MEDS: metroNIDAZOLE 500 MG/100 ML PIGGYBACK 100 MG IV ×2 (13:44→21:08)
[2018-08-30] MEDS: SODIUM CHLORIDE 0.9% 1,000 ML 150 ML IV ×2 (13:44→22:30)
[2018-08-30 14:18] LABS: Lactate (Lactic Acid) 2.1 mmol/L (0.7-2.1)
[2018-08-30 14:36] LABS: Procalcitonin 0.56 ng/mL (<0.5)
[2018-08-30] MEDS: MORPHINE 2 MG/ML INJ 1 MG IV ×2 (14:46→17:32)
[2018-08-30 18:01] LABS: Lipase 634 U/L (23-300)
--- NOTE | 2018-08-30 20:56 | P.DS_ITS ---
History of Present Illness Date Patient Seen: 08/30/18 Chief complaint: ABDOMINAL PAIN/VOMITING Narrative: Patient presented to the ED on 08/22/2018 with complaints of epigastric pain. Symptoms initially noted shortly after mid-night and noted to be of sudden onset. There is no radiation to the back, chest, or flanks. Pain is characterized as cramping and constant. Rated 6-7/10. Abdominal discomfort awakened patient from sleep. Associated symptoms include nausea and vomiting (estimates 16 episodes of bilious emesis). No fever or chills. No diaphoresis. Diminished appetite. No attempts at eating or drinking in lieu of severe abdominal discomfort. No specific exacerbating or remitting factors noted. Denies history of cholelithiasis /cholecystitis, hypertriglyceridemia, external abdominal trauma, or autoimmune condition. Denies prior history of heavy alcohol use; however, does have lifelong EtOH use, currently drinks 2 drinks thrice weekly. Did drink slightly more in his younger years, but denies paranoia excessive use or alcoholism. RF: Advanced age, alcohol use (lifelong). [place] lab [place] in [place] [address]. ALT 399, AST 46, T. Bili 1.6. No signs symptoms of SIRS or sepsis. CT A/P w/ contrast... - Inflammatory changes and free fluid adjacent to the pancreas compatible w/ acute pancreatitis. No pancreatic pseudocyst. - Mildly dilated loops of small bowel noted in LUQ of the abdomen. Loops of small bowel are dilated up to 3.1 cm. There is circumferential wall thickening associated with the dilated loops of small bowel. Transition zone is in the proximal ileum. Concerning for partial obstruction or ileus related to non-specific enteritis. - diverticuli in the colon without evidence of diverticulitis - no free air. Moderate amount of free fluid is scattered throughout the abdomen and pelvis. - severe hepatic steatosis Discharge Providers Date of admission: 08/22/18 19:47 Consults: 08/23/18 05:45 Consult to General Surgery Routine Comment: Consulting Provider: Melinda Olivo Reason for consultation: pancreatitis, cholechodolithiasis, MRCP Has provider been notified: No 08/26/18 19:38 Consult to Respiratory Therapy Evaluate & Treat Comment: Aspiration PNA Physician Instructions: Evaluate and treat 08/28/18 15:01 Consult to Speech Therapy Evaluate & Treat Comment: Physician Instructions: Evaluate and treat 08/30/18 13:04 Consult to Physician Routine Comment: Consulting Provider: Hardy Gaffney Reason for consultation: peripancreatic fluid collection, increasing abdominal pain Discharge provider: RADHA Rodarte Summary Discharge Diagnosis: 1. Acute alcoholic pancreatitis with complication of worsening pain, development of peripancreatic fluid and elevated white count concerning for infective process -imaging : CT abdomen and pelvis completed today identifies peripancreatic and pancreatic fluid collection consistent with pancreatitis sequelae, possibly infectious. No evidence of pancreatic necrosis, no biliary ductal dilatation, bibasilar atelectasis versus pneumonia with bilateral pleural effusions. Small pericardial effusion -ultrasound of the abdomen revealed adherent stone versus polyp the gallbladder. Patient was evaluated by surgery and no intervention recommended. -MRCP did not demonstrate any cholelithiasis or coleductallithiasis -lipase is normalized and diet resumed -last night the patient with a transient drop in blood pressure to 90/57, normalizing without intervention and persistent tachycardia in 90s to 100s -lipase had normalized to 291. Lipase recheck today with increasing pain and found to be 634 -leukocytosis to 17.9 with an H&H of 11.8 and 34.1 and platelets of 424, electrolytes are within normal limits. Transaminases were checked last on 08/28 with an AST of 45, ALT of 72 and alkaline phosphatase is 68. He had an elevated bilirubin of 1.5 -lactate is found to be 2.1 and procalcitonin 0.56. Blood cultures have been drawn. -surgery reconsulted who recommended transfer for GI services. -patient is now NPO with normal saline at 150 cc per hour following a 500 cc bolus -patient is already on Zosyn for aspiration pneumonia and metronidazole has been added for anaerobic coverage 2. Probable aspiration pneumonia, improving -imaging today identifies bibasilar atelectasis versus pneumonia versus small pulmonary effusion -patient on room air without dyspnea at rest, he does experience dyspnea on exertion -he is currently covered with Zosyn 3.375 g every 8 hr -duo nebs every 6 hr as needed with albuterol every 2 hr as needed 3. Alcohol abuse, chronic -patient with history of several beers and mixed drinks daily. -patient became symptomatic for withdrawals on hospital day 4 withdrawal symptoms resolving -CIWA score today is 0 4. Acute hypokalemia, resolved 5. Essential hypertension, chronic -episode of hypotension at 90/57 last night returning to normal however today is tachycardic. -will hold losartan, continue IV fluids and monitor pressures 6. Severe hepatosteatosis -Likely secondary to chronic alcohol consumption. -CT abdomen and pelvis demonstrated severe steatohepatosis of liver. -on admission AST was 220, ALT 245, alk phos was 58, transaminase now within nor mal, persistent elevated bilirubin at 1.5. Hospital Course: Please refer to the admitting H&P for presenting symptoms and initial evaluation. Patient has responded well to conservative treatment with NPO status, IV fluids and pain management with normalization of his lipase. His recovery is been complicated by acute alcohol withdrawals. The patient was treated by withdrawal protocol and is no longer symptomatic. Last night the patient presented with an episode of relative hypotension and has since been tachycardic. This morning the patient complains of increased pain prompting re- evaluation. Patient with increasing white blood cell, increase in lipase to 623 from 291. Imaging reveals development alvarez and retro pancreatic fluid without necrosis or evidence of pseudocyst. Surgery consulted recommended patient be transferred for gastrointestinal specialty care. As noted above the patient is currently on Zosyn and metronidazole, he is NPO with IV normal saline infusing at 150 mL/hr. Disposition: Spoke with Dr. Ray Travis, gastroenterology at [facility] [place] and review the the patient's case. Dr. Travis has agreed to accept patient. In speaking with the transfer center there are no beds available tonight and will proceed with transfer in the morning. Hospitalist team will call in the morning for an updated report prior to transfer. Status at Discharge Functional status at discharge: independent ambulation Overall status at discharge: patient is not back to baseline Time Spent with Patient Less than 30 minutes Exam Vital Signs (past 8 hours): - 08/30/18 14:02 08/30/18 16:04 08/30/18 16:07 Temperature 98.7 F 98.2 F Pulse Rate 99 H 101 H 104 H Respiratory Rate 30 H 18 20 Blood Pressure 107/86 114/83 Pulse Oximetry 99 93 96 08/30/18 20:36 Temperature 98.3 F Pulse Rate 99 H Respiratory Rate 17 Blood Pressure 115/90 Pulse Oximetry 95 Fraction of Inspired Oxygen 21 Oxygen Delivery Method Room Air Oxygen Flow Rate 0 Narrative Exam Narrative: General: Well developed male appearing older than his stated age, well nourished, in no acute distress. Skin: Warm, dry, pink, no rashes, no visible lesions HEENT: Normocephalic, PERRLA, EOMs intact without nystagmus, conjunctiva moist, sclera is anicteric, no rhinorrhea oropharynx pink and moist without exudates or lesion, no cervical lymphadenopathy Neck: Supple, no masses, no thyromegaly or nodules, trachea midline, no supraclavicular lymphadenopathy Cardiac: Regular rate and rhythm, S1-S2, no murmur, gallops or rubs, 2+ radial pulse, 1+ dorsalis pedis pulse, capillary refill is brisk, no edema Chest: Symmetrical movement, breathing non labored, no cough present, BS with bibasilar crackles not clearing with cough Abdomen: Soft, pain on palpation left upper quadrant with mild guarding, no peritoneal signs, no organomegaly, no flank or suprapubic pain, BS normal. Back: Normal curvature, no tenderness to palpation Extremities: Full ROM, no synovial effusions or deformities, strength 5/5 and symmetrical Neuro: AAOx4, cranial nerves II-XII grossly intact, distal sensation intact to light touch Psych: Mildly anxious, cooperative, thought coherent, stable mood and congruent affect Objective Labs Result Diagrams: 08/30/18 08:26 08/30/18 08:26 Labs: Laboratory Results - last 24 hr 08/30/18 08/30/18 08/30/18 08:26 08:26 13:45 WBC 17.9 H RBC 3.42 L Hgb 11.8 L Hct 34.1 L MCV 99.9 MCH 34.4 H MCHC 34.5 RDW 15.2 H Plt Count 424 H Neut % (Auto) 84.9 H Lymph % (Auto) 7.3 L [place] % (Auto) 6.6 Eos % (Auto) 0.5 L Baso % (Auto) 0.7 Neut # (Auto) 87230 H Lymph # (Auto) 1300 [place] # (Auto) 1200 H Eos # (Auto) 100 Baso # (Auto) 100 Sodium 131 L Potassium 3.5 Chloride 102 Carbon Dioxide 21 L BUN 8 L Creatinine 0.60 L Estimated GFR > 60.0 BUN/Creatinine Ratio 13.3 Glucose 81 Lactate Calcium 8.2 L Lipase Procalcitonin 0.56 H 08/30/18 08/30/18 13:45 13:45 WBC RBC Hgb Hct MCV MCH MCHC RDW Plt Count Neut % (Auto) Lymph % (Auto) [place] % (Auto) Eos % (Auto) Baso % (Auto) Neut # (Auto) Lymph # (Auto) [place] # (Auto) Eos # (Auto) Baso # (Auto) Sodium Potassium Chloride Carbon Dioxide BUN Creatinine Estimated GFR BUN/Creatinine Ratio Glucose Lactate 2.1 Calcium Lipase 634 H D Procalcitonin Discharge Plan Discharge Plan Patient Disposition: [facility] Other facility: [facility] Under care of provider: Dr. Ray Travis, Gastroenterology Discharge Med Rec/Prescriptions Prescriptions: No Action multivitamin Tablet 1 tab PO DAILY RF: 0 losartan 25 mg Tablet 12.5 mg PO DAILY RF: 0 ibuprofen 200 mg Tablet 1 dose PO PRN PRN (Reason: pain) RF: 0 Discharge Health Status Multidrug resistant organism: No MDRO Provider Discharge Instructions Diet: Nothing by Mouth Diet comment: NPO except meds Activity: As tolerated Oxygen: Oxygen as needed to maintain saturation greater than 92% Discharge Data Attending Provider: Trevin Wang Admit Date/Time: 08/22/18 19:47
[2018-08-30] MEDS: HYDROCODONE/ACET 5/325 TABLET 1 TAB PO (21:08)
--- NOTE | 2018-08-30 21:19 | PC.NURSE ---
Evening Shift Pt expressed anxiety about CT scan results and surgery consult, provider made aware and talked to patient about the plan of care. Pt reported feeling less anxious after that. Pt O2 sat was in high 80's and 2L nasal canula was applied with good effect. Pt c/o 4/10 pain, [place] given. Provider approved NPO with meds and water. Waiting for bed to transfer care. Will continue to monitor for needs and safety.
[2018-08-31] VITALS: BP 99/75; PULSE 98; RESP 18; TEMP 36.7; O2SAT 98
[2018-08-31] MEDS: PIPERACILLIN-TAZO 3.375 GM/50 ML FROZ.PIGGY IV ×2 (02:38→09:19)
[2018-08-31] MEDS: HYDROCODONE/ACET 5/325 TABLET 1 TAB PO ×2 (03:16→09:19)
[2018-08-31 04:07] VITALS: BP 115/83; PULSE 97; RESP 20; TEMP 36.7; O2SAT 93
[2018-08-31] MEDS: metroNIDAZOLE 500 MG/100 ML PIGGYBACK 100 MG IV (05:13)
--- NOTE | 2018-08-31 06:04 | PC.NURSE ---
Patient received norco for c/o pain in mid abdomen. Has been sleepy, but alert and oriented when awake. Using the urinal at bedside. Per report, patient should go to [facility] today.
[2018-08-31 06:11] LABS: Add Manual Diff / Slide Review NO; Basophils Absolute Auto 0 /uL (0-100); Basophils Percent Auto 0.4 % (0-2); Eosinophils Absolute Auto 200 /uL (0-450); Eosinophils Percent Auto 1.5 % (2-4); Hematocrit 28.9 % (41-53); Hemoglobin 9.9 g/dL (13.5-17.5); Lymphocytes Absolute Auto 600 /uL (1100-4500); Lymphocytes Percent Auto 4.6 % (25-40); Mean Corpuscular Hemoglobin 34.4 PG (26-34); Mean Corpuscular Volume 101.2 fL (80-100); Monocytes Absolute Auto 800 /uL (0-900); Monocytes Percent Auto 6.5 % (3-14); Neutrophils Absolute Auto 11300 /uL (1500-7000); Platelet Count 389 X10^3/uL (150-400); Red Blood Cell Count 2.86 X10^6/uL (4.5-5.9); Red Cell Distribution Width 15.5 % (11.6-14.8)
[2018-08-31 06:20] LABS: BUN Creatinine Ratio 11.4 (6-22); Blood Urea Nitrogen 8 mg/dL (9-20); Calcium 7.7 mg/dL (8.4-10.2); Carbon Dioxide 20 mmol/L (22-32); Chloride 105 mmol/L (98-107); Estimated Glomerular Filt Rate > 60.0 mL/min (>60); Glucose 74 mg/dL (80-110); HEMOLYSIS < 15 (0-50); Potassium 3.7 mmol/L (3.4-5.1); Sodium 132 mmol/L (137-145)
[2018-08-31] MEDS: PANTOPRAZOLE 20 MG TABLET PO (06:26)
[2018-08-31] MEDS: SODIUM CHLORIDE 0.9% 1,000 ML 150 ML IV (06:26)
[2018-08-31 07:24] LABS: Lipase 577 U/L (23-300)
[2018-08-31 08:00] VITALS: BP 113/80; PULSE 90; RESP 20; TEMP 36.6; O2SAT 99
[2018-08-31 08:56] LABS: Procalcitonin 0.48 ng/mL (<0.5)
[2018-08-31] MEDS: POTASSIUM CHLORIDE 20 MEQ TAB 40 MEQ PO (09:11)
--- NOTE | 2018-08-31 11:40 | PC.NURSE ---
Day shift: Report given to Kelly at the facility Pt is going to at this time.
--- NOTE | 2018-08-31 12:28 | PC.NURSE ---
Day shift: Pt left unit with [facility] transport. He has all personal belongings. Transport ppl have the [place] folder/chart.
--- NOTE | 2018-08-31 12:30 | PC.NURSE ---
Day shift: Left unit at approx 1220.
== END 2018-08-31 12:29 | disposition short-term general hospital (02) | DRG 438 ==
LOC: ED 16:29 → AC 19:48
PROVIDERS: Internal Medicine; Nurse Practitioner Adult Health; Admitting Provider Nurse Practitioner Gerontology; Emergency Provider Emergency Medicine; Visit Provider Nurse Practitioner Gerontology
DX: K85.20 Alcohol induced acute pancreatitis without necrosis or infection (principal); J96.01 Acute respiratory failure with hypoxia; J69.0 Pneumonitis due to inhalation of food and vomit; K56.7 Ileus, unspecified; F10.231 Alcohol dependence with withdrawal delirium; K85.22 Alcohol induced acute pancreatitis with infected necrosis; E86.1 Hypovolemia; E87.6 Hypokalemia; K76.89 Other specified diseases of liver; K70.9 Alcoholic liver disease, unspecified; I10 Essential (primary) hypertension
CPT/HCPCS: 36415; 36591; 36600; 71045; 71046; 74177; 74181; 76700; 80048; 80053; 80061; 80076; 81003; 81015; 82330; 82805; 83605; 83690; 83735; 83880; 84132; 84133; 84145; 85025; 86140; 87040; 87086; 92610; 93005; 93010; 94640; 94760; 94762; 96361; 96374; 96375; 96376; 99232; 99285; J1170; J1644; J1940; J2060; J2270; J2405; J2543; J3475; J3480; Q9967